=== PATIENT | female | born 1935 | race Asian ===

== ENCOUNTER 2024-05-13 05:08 | Inpatient (IN) | payer MEDICARE, OTHER, SELFPAY ==
[2024-05-13] VITALS (79 sets, daily range): BP systolic 78–125; BP diastolic 57–91; PULSE 2–102; BMI 21.9
[2024-05-13 01:14] LABS: Glucose - Point of Care 140 mg/dl (70-99)
--- NOTE | 2024-05-13 01:29 | ED.GENMED ---
History of Present Illness
General
Chief Complaint: Breathing Problem
Source: ambulance crew
Exam Limitations: none
Time Seen by Provider: 05/13/24 01:20
Nursing documentation reviewed up to this point in time: agreed with
History of Present Illness
History of Present Illness:
89-year-old female presents emergency department complaining of respiratory distress. Unclear onset. Patient was hypotensive per EMS, who gave 30 mcg of epinephrine. Blood pressure was 58/30.
Past History
Past History
ED Past Medical History: Arrthythmia, CVA (Left body paralysis, aphasia), HTN, NIDDM and Other (Dementia)
ED Past Surgical History: None
Patient has exhibited threatening behavior?: No
PSI?: No
Social History
Tobacco: Other
Alcohol: Other
Drug: None
Personal: Other
Living: [facility]
Employment: Not employed
Review of Systems
Review of Systems
Allergies reviewed?: Yes
Unable to obtain full review of systems at this time due to: dementia
All Other Systems: Not applicable
Respiratory: Reports cough and trouble breathing
Phy Exam
Physical Exam
Physical Exam:
Physical Exam
General: Moderate respiratory distress, on BiPAP, fever 102.6
Neck: supple. no meningeal signs. normal posterior pharynx
Heart: s1/s2 tachycardia, no murmur. equal radial
pulses.
HEENT: Pupils equal round reactive to light, EOMI
Lungs: Moderate respiratory distress. Rhonchi bilaterally
Abdomen: normal bowel sounds. not tender. no CVAT
Neuro: alert and oriented. no focal neurological deficits cranial nerves II through XII intact
Skin: no rash
Psychiatric: on bipap
Extremities: no edema. no calf tenderness. negative homans. good distal pulses
Scores
Heart Failure Risk
Heart Failure Risk Score: Yes
History of Stroke or TIA: Yes
History of intubation for respiratory distress: Yes
Heart rate on ED arrival >/= 110: Yes
SaO2 <90% on arrival on room air: Yes
HR >/=110 during 3min walk test (or too ill to perform test): Yes
ECG has acute ischemic changes: No
Urea >/=12mmol/L (BUN 33.6mg/dL): No
Serum CO2>/=35mmol/L: No
Troponin I or T elevated to OR Level (0.4mg/dL): No
NT-proBNP >/=5,000ng/L (5,000pg/ml): Yes
HF Risk Score: 7
Admission Status: VERY HIGH RISK 69.8% Consider admission to hospital
Sepsis
Sepsis Screening
Sepsis Assessment: Severe Sepsis
Sepsis Screening: Lactate >2mmol/L and Need for mechanical ventilation or BiPAP
Sepsis Screen
Sepsis Screen: Severe Sepsis
Date: 05/13/24
Time: 03:12
Course
Orders/Labs/Results
Orders:
Orders
05/13/24 01:11
EKG [Electrocardiogram (*1)] Urgent
Reason for Study: Shortness of Breath
EKG- Treatment ONCE
05/13/24 01:29
IV Insert/Care/Rem.- Treatment PRN
05/13/24 01:30
Acetaminophen [Tylenol/Feverall] 650 mg .ROUTE .STK-MED ONE
CR Chest Portable - 1 View Urgent
Comment:
Reason For Exam: short of breath
Reason Study Needs to be Portable: Patient Unstable
05/13/24 01:31
Acetaminophen [Tylenol/Feverall] 650 mg RECTAL NOW STA
05/13/24 01:35
0.9% Sodium Chloride 1000 ml [Nss] 1,000 ml IV BOLUS
05/13/24 01:49
Complete Blood Count/With Diff Urgent
Comprehensive Metabolic Panel Urgent
Lactic Acid Q4H
Comment: CANCEL 2nd LACTIC ACID IF 1st LACTIC ACID IS LESS THAN 2
NT-proBNP Urgent
Troponin I Urgent
05/13/24 01:51
Blood Culture Q30M
ALY Source: Blood/Venous
Specimen Description:
Blood Culture Q30M
ALY Source: Blood/Venous
Specimen Description:
05/13/24 02:02
COVID-19 Antigen Urgent
Source: Nasal Swab
Influenza A+B Rapid Molecular Urgent
ALY Source: Nasal Swab
Specimen Description:
05/13/24 02:34
Cefepime HCl [Maxipime] 2,000 mg IV NOW STA
Vancomycin 1 Gram/200 ml [Vancocin] 1 gram in 200 ml IV NOW
05/13/24 05:30
Lactic Acid Q4H
Comment: CANCEL 2nd LACTIC ACID IF 1st LACTIC ACID IS LESS THAN 2
Abnormal Lab Results
05/13/24 05/13/24
01:13 01:49
WBC 22.7 H 10^3/uL
(4.8-10.8)
RBC 4.09 L 10^6/uL
(4.20-5.40)
MCHC 32.2 L g/dL
(33.0-37.0)
RDW 16.1 H %
(11.5-14.5)
Sodium 148 H mmol/L
(135-145)
Chloride 113 H mmol/L
(98-107)
BUN 29 H mg/dl
(7-17)
Glucose 171 H mg/dl
(70-99)
Lactic Acid 2.5 H mmol/L
(0.7-2.0)
Total Bilirubin 1.8 H mg/dl
(0.2-1.3)
Alkaline Phosphatase 129 H U/L
(38-126)
Troponin I 0.035 H* ng/ml
Albumin 3.0 L g/dl
(3.5-5.0)
POC Glucose 140 H mg/dl
(70-99)
05/13/24 01:49
05/13/24 01:49
Vital Signs
Initial and Last Documented VS:
Initial Vital Signs
Temp Pulse Resp BP Pulse Ox
102.6 F H 129 30 88/66 97
05/13/24 01:11 05/13/24 01:11 05/13/24 01:11 05/13/24 01:11 05/13/24 01:11
Last Documented Vital Signs
Temp Pulse Resp BP Pulse Ox
102.6 F H 104 25 116/79 97
05/13/24 01:11 05/13/24 02:45 05/13/24 02:45 05/13/24 02:45 05/13/24 01:11
MDM/Problems Addressed
Differential Diagnosis Includes:
Pneumonia, influenza, CHF
MDM/Problems Addressed:
89-year-old female with influenza and pneumonia. Cefepime and vancomycin given. Patient cannot tolerate Tamiflu. BiPAP. Admit to ICU.
Chronic conditions affecting care: Asthma and Neurological disorder (Dementia)
Acute Exacerbation and/or Progression of Chronic Illness: Asthma
*Radiology
Radiology exam reviewed: preliminary read by ED provider (Chest x-ray right-sided pneumonia)
*Pulse Oximetry
Patient hypoxic: yes
*EKG
Interpreted by ED Provider?: Yes
EKG Intrepretation Date: 05/13/24
EKG Intrepretation Time: 01:20
Interpretation: abnormal
Comparison EKG: changes noted
Heart Rate: 124
Rate: tachycardiac
Rhythm: a-fib
[place]: left axis deviation
Interval: normal interval
QRS Pattern: normal QRS
Ischemia: no ischemia
*Cs Associate Interpretation
Rate: tachycardiac
Interpretation: abnormal
Heart Rate: 120
Rhythm: a-fib
*Critical Care Note
Total Time (30-74mins, 75-104mins- exclusive of procedures): 30
comment:
Critical care statement: A total of 30 minutes of critical care time was provided for this patient. This includes management of unstable vital signs, evaluation of the patient at bedside, reviewing the patient's pertinent medical records, discussion
with consultants, review of old EKGs and review of pertinent medical records. This time with separate from time utilized to perform the aforementioned documented procedures
Data Reviewed
Source: records (intermediate records show patient is full code)
Further Testing Considered But Not Given:
CT chest not indicated
Patient Management
Social determinants of health affecting care: Living situation and Strong social support
Discussion with other providers: Hospitalist
Escalation/DeEscalation of care consider admission/obs:
Admit indicated
ED Attending Note
-
Portions of this chart may have been created with voice recognition software.� Occasional wrong word or��sound alike� substitutions may have occurred due to the inherent limitations of voice recognition software.
Discharge Plan
Departure
Patient Disposition: Admit
Date of Disposition: 05/13/24
Time of Disposition: 03:02
Admit to: ICU
Presentation/result/management discussed w/ accepting MD/DO: Hospitalist
Patient with high blood pressure during this ER visit?: No
Condition: Fair
Discharge Problem:
Acute respiratory failure with hypoxia, Sepsis, Lactic acidosis, Influenza A, Bacterial pneumonia
Prescriptions:
No Action
atorvastatin 80 mg Tablet
80 mg feeding tube HS
donepezil 5 mg Tablet
5 mg feeding tube HS
bisacodyl [Dulcolax (bisacodyl)] 10 mg Suppository
10 mg NH DAILY PRN (Reason: if mom ineffective)
ferrous sulfate 300 mg (60 mg iron)/5 mL Liquid
300 mg feeding tube BID@0800,1600
insulin lispro 100 unit/mL Solution
1 sliding scale dose SC DAILY
Rx Instructions:
200-249=1unit, 250-299=2units,300-349=3units,350-399=4units,400-499=5units,if over 500 or under 60call MD
ipratropium-albuterol 0.5 mg-3 mg(2.5 mg base)/3 mL Solution For Nebulization
3 ml INHALATION R Q6HPRN PRN (Reason: wheezing SOB)
melatonin 3 mg Tablet
3 mg feeding tube HS PRN (Reason: insomnia)
tamsulosin 0.4 mg Capsule
0.4 mg PO DAILY@1730
metoprolol tartrate 25 mg Tablet
12.5 mg feeding tube BID
Patient Comments:
hold for sbp<100,hr<60
zinc oxide 30.6 % Cream
1 applic TOPICAL TID
acetaminophen 325 mg Tablet
650 mg feeding tube Q6H PRN (Reason: mild pain, T>100F )
lidocaine 4 % Adhesive Patch,Medicated
1 patch TOPICAL DAILY
polyethylene glycol 3350 [Miralax] 17 gram Powder In Packet
17 g feeding tube DAILY PRN (Reason: constipation)
therapeutic multivitamin Tablet
1 tab FEEDING TUBE DAILY
guaifenesin 100 mg/5 mL Liquid
100 mg feeding tube Q6H PRN (Reason: cough)
magnesium hydroxide [Milk of Magnesia] 400 mg/5 mL Suspension
30 ml feeding tube DAILY PRN (Reason: if no bm x 3 days)
Fleet Enema 19-7 gram/118 mL Enema
118 ml NH ONCE PRN (Reason: if dulcolax ineffective)
pantoprazole [address] For Susp In Packet
40 mg feeding tube DAILY
Aquaphor Ointment
1 applic TOPICAL BID
diphenhydramine HCl [Benadryl Allergy] 25 mg Tablet
25 mg PO DAILY@1600
nystatin 100,000 unit/gram Powder
1 applic TOPICAL BID
formoterol fumarate 20 mcg/2 mL Solution For Nebulization
2 ml INHALATION R BID
Eliquis 2.5 mg Tablet
2.5 mg feeding tube BID
doxycycline monohydrate 25 mg/5 mL Suspension For Reconstitution
100 mg feeding tube Q12H Qty: 0 0RF
albuterol sulfate 2.5 mg /3 mL (0.083 %) Solution For Nebulization
2.5 mg inhalation R QID Qty: 0 0RF
albuterol sulfate 2.5 mg /3 mL (0.083 %) Solution For Nebulization
2.5 mg inhalation R Q4HPRN PRN (Reason: SOB/cough) Qty: 0 0RF
prednisone 50 mg Tablet
50 mg feeding tube DAILY Qty: 0 0RF
budesonide 0.5 mg/2 mL Suspension For Nebulization
0.5 mg inhalation R BID Qty: 0 0RF
Referrals:
Garrick Sanchez DO [Family Provider] -
Interventions
Interventions:
*Risk Screen - Suicide Last Done: 05/13/24 01:11
*General Assessment Last Done: 05/13/24 01:11
*Neglect/Abuse Screening Last Done: 05/13/24 01:11
*ED COVID-19 Vaccine History Last Done: 05/13/24 01:11
Discharge Date and Time
Print Language: CUBAN
[2024-05-13] MEDS: TYLENOL/FEVERALL 650 MG RECTAL (01:31)
[2024-05-13] MEDS: NSS 1000 IV (01:41)
[2024-05-13 02:28] LABS: Hematocrit 38.8 % (37.0-47.0); Hemoglobin 12.5 g/dL (12.0-16.0); Mean Corp Hgb Conc. 32.2 g/dL (33.0-37.0); Mean Corpuscular Hgb 30.6 pg (27.0-31.0); Mean Corpuscular Volume 94.9 fL (81.0-99.0); Mean Platelet Volume 10.4 fL (7.4-10.4); Platelet Count 257 10^3/uL (130-400); Red Blood Cell Count 4.09 10^6/uL (4.20-5.40); Red Cell Dist. Width 16.1 % (11.5-14.5); White Blood Cell Count 22.7 10^3/uL (4.8-10.8)
[2024-05-13 02:37] LABS: COVID-19 Antigen Negative (Negative)
[2024-05-13 02:42] LABS: Lactic Acid 2.5 mmol/L (0.7-2.0)
[2024-05-13 02:52] LABS: ALT (SGPT) 25 U/L (0-35); AST (SGOT) 27 U/L (14-36); Alkaline Phosphatase 129 U/L (38-126); Blood Urea Nitrogen 29 mg/dl (7-17); Calcium 8.6 mg/dl (8.4-10.2); Carbon Dioxide 25 mmol/L (22-30); Chloride 113 mmol/L (98-107); Estimated Creatinine Clearance 27 ml/min; Glucose 171 mg/dl (70-99); Potassium 4.1 mmol/L (3.5-5.1); Sodium 148 mmol/L (135-145); Total Bilirubin 1.8 mg/dl (0.2-1.3); Total Protein 6.4 g/dl (6.3-8.2); eGFR > 60.00
[2024-05-13 02:54] LABS: NT-proBNP 9240 pg/ml; Troponin I 0.035 ng/ml
[2024-05-13] MEDS: MAXIPIME 2000 MG IV (03:04)
[2024-05-13] MEDS: VANCOCIN 200 IV (03:05)
[2024-05-13 04:19] LABS: Absolute Neutrophils -Man Diff 21.7 10^3/uL (1.4-6.5); Band Neutrophils 17 % (0-3); Lymphocytes 2 % (20-51); Monocytes 2 % (2-9); Normal RBC Morphology Yes; Platelets Checked Yes; Segmented Neutrophils 79 % (42-75)
[2024-05-13 04:20] LABS: Total Cells Counted 100; Vacuolated Segs 1+
--- NOTE | 2024-05-13 04:21 | HPS.HSE ---
Family Physician
-
Family Physician: Garrick Sanchez DO
Chief Complaint
-
Hypoxic respiratory failure
History of Present Illness
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
[facility] with hypoxic respiratory failure via EMS.
Patient unable to provide history due to language and extreme medical illness. History obtained from daughter. Daughter stated that patient started having symptoms about a week ago. At that time she tested negative for COVID and flu. She was
thought to have some cough and given cough medications. A few days later she was thought to have a mild asthma exacerbation and started on prednisone. She appeared to improve after couple of days however about 2 days ago she got very very
lethargic. Then this morning patient became hypoxic. She also became hypotensive. When EMS arrived they found her hypotensive to 50/30 with a respiratory rate of 40 and a pulse of 110. Oxygen saturation at that time was 90. They gave her a dose
of epinephrine and blood pressure improved to 106/68. With nonrebreather she was satting 100%.
On arrival in the emergency department patient placed on BiPAP, blood pressure remained at 116/79, she is satting at 98% on 15 L. ECG shows atrial fibrillation at rate of 124. Troponin was 0.035. Chest x-ray shows right midlung opacity. She had
a white count of 22,000, hemoglobin and platelets were normal. Electrolytes BUN/creatinine were in the normal range. COVID test was negative. Influenza test was positive.
Medical History
Past Medical History
Past Medical History: Reports Arrhythmia (Paroxysmal atrial fibrillation by history on Eliquis), CVA, Dementia, HTN and NIDDM
Past Surgical History: Reports None
Social History
Unable to obtain full social history at this time due to: Dementia
Tobacco: Other
Alcohol: Other
Drug: None
Living: [facility]
Employment: Disabled
Family History
Family History: Not pertinent
Allergies / Home Medications
Allergies reflects when Allergies were last updated in [facility].
Home Medications with original date entered in [facility]
Allergy/Medication List:
Allergies
Allergy/AdvReac Type Severity Reaction Status Date / Time
Penicillins Allergy Unknown Verified 05/13/24 03:01
Home Medications
acetaminophen 325 mg tablet 650 mg PO Q6H PRN mild pain, T>100F 10/25/21
atorvastatin 80 mg tablet 80 mg PO HS High cholesterol 10/25/21
bisacodyl 10 mg rectal suppository (Dulcolax (bisacodyl)) 10 mg ME DAILY PRN if mom ineffective 10/25/21
donepezil 5 mg tablet 5 mg PO HS Neurological Condition 10/25/21
guaifenesin 100 mg/5 mL oral liquid 100 mg PO Q6H PRN cough 10/25/21
ipratropium 0.5 mg-albuterol 3 mg (2.5 mg base)/3 mL nebulization soln 3 ml inhalation R Q6HPRN PRN wheezing SOB 10/25/21
magnesium hydroxide 400 mg/5 mL oral suspension (Milk of Magnesia) 30 ml PO DAILY PRN if no bm x 3 days 10/25/21
melatonin 3 mg tablet 3 mg PO HS PRN insomnia 10/25/21
polyethylene glycol 3350 17 gram oral powder packet (Miralax) 17 g PO DAILY PRN constipation 10/25/21
sodium phosphates 19 gram-7 gram/118 mL enema (Fleet Enema) 118 ml ME ONCE PRN if dulcolax ineffective 10/25/21
tamsulosin 0.4 mg capsule 0.4 mg PO DAILY@1730 Urinary issue 10/25/21
therapeutic multivitamin 1 tab feeding tube DAILY Supplement 10/25/21
zinc oxide 30.6 % topical cream 1 applic topical TID sacrum and buttock 10/25/21
apixaban 2.5 mg tablet (Eliquis) 2.5 mg PO BID Blood clot prevention/tx 02/07/22
formoterol fumarate 20 mcg/2 mL solution for nebulization 2 ml inhalation R BID Lung/breathing issues 02/07/22
albuterol sulfate 2.5 mg/3 mL (0.083 %) solution for nebulization 2.5 mg (3 mL) inhalation R Q4HPRN PRN SOB/cough #0 mL 02/16/22
albuterol sulfate 2.5 mg/3 mL (0.083 %) solution for nebulization 2.5 mg (3 mL) inhalation R QID #0 mL 02/16/22
budesonide 0.5 mg/2 mL suspension for nebulization 0.5 mg (2 mL) inhalation R BID #0 mL 02/16/22
ferrous sulfate 325 mg (65 mg iron) tablet 325 mg PO DAILY 05/13/24
mirtazapine 15 mg tablet (Remeron) 15 mg PO HS 05/13/24
oxymetazoline 0.05 % nasal spray (Afrin (oxymetazoline)) 2 spray intranasal Q12H PRN dryness/epitaxis 05/13/24
prednisone 10 mg tablet 10 mg PO DAILY 05/13/24
prednisone 10 mg tablet 20 mg PO DAILY 05/13/24
Review of Systems
-
Unable to obtain full review of systems at this time due to: Acuity
Physical Exam
Vital Signs
Vital Signs
Temp Pulse Resp BP Pulse Ox
102.6 F H 104 25 116/79 97
05/13/24 01:11 05/13/24 02:45 05/13/24 02:45 05/13/24 02:45 05/13/24 01:11
Physical Exam
General: Respiratory Distress and Appears in Distress
HEENT: NormoCephalic, Anicteric, Moist mucous membranes, Atraumatic and Oxygen
Respiratory: Wheezes, Rales, Rhonchi, Accessory Resp Muscle Use and Decreased Breath Sounds
Cardiac: S1/S2, Irregular Rhythm and Tachycardia
Breast: Deferred by me
GI: Soft, Non Tender, Non Distended and Normal Bowel Sounds
Rectal: Deferred by Provider
Genito-urinary: Deferred by me
Musculoskeletal: No Clubbing, No Cyanosis and No Edema
Skin: Warm
Neuro: AO x 3, No Motor Deficits and Nonfocal/grossly intact
Hematologic/Lymphatic: No Lymphadenopathy
Psych: Calm
Laboratory Results
-
05/13/24 01:49
05/13/24 01:49
Laboratory Results
Lactic Acid 2.5 mmol/L (0.7-2.0) H 05/13/24:49
Total Bilirubin 1.8 mg/dl (0.2-1.3) H 05/13/24:49
AST 27 U/L (14-36) 05/13/24:49
ALT 25 U/L (0-35) 05/13/24 01:49
Alkaline Phosphatase 129 U/L (38-126) H 05/13/24:49
Troponin I 0.035 ng/ml H* 05/13/24 01:49
Data Reviewed
-
Diagnostic Radiology: Image Personally Visualized and interpreted
Medical Tests (Nuc Med, Echo, EKG etc): Image Personally Visualized and interpreted
Lab Data: Labs Reviewed by me
Old Records: Reviewed
Impression/Plan
-
IMPRESSION:
89-year-old with history of CVA, dysphagia, left-sided hemiparesis, asthma, prior admission for pneumonia requiring intubation who presents to the emergency department in respiratory failure and sepsis. Onset of respiratory distress is
approximately 2 days ago in the setting of about 1 week of URI symptoms. Found to have influenza. She does have opacity on x-ray and leukocytosis. Troponin 0.035, BNP 9200. With degree of work of breathing that she does appear to have some
elevated neck veins. She does not have any peripheral edema on exam. No known history of CHF
PLAN:
Pneumonia/influenza -pneumonia with sepsis, likely postviral with respiratory failure. She is in extreme distress requiring BiPAP. She still breathing at a rate of 30 on the BiPAP.
- admit to icu
-Currently maintaining oxygen saturation of 100% on the BiPAP
-Blood culture sent
-Continue vancomycin (history of MRSA) continue cefepime
� Add doxycycline
-Cannot give Tamiflu at this time but will order until patient has some kind of enteral access
-She may be in asthma exacerbation will give IV Solu-Medrol 125mg, albuterol now and 1 dose of mag sulfate
-[employer] consult
-She does have elevated BNP and elevated neck veins, no prior history of CHF and no peripheral edema. She was hypotensive with initial arrival. Will hold off on Lasix for now and get echo in the morning. Status post 1 L of normal saline no
further IV fluids at this time.
- pressors if needed.
Had a long discussion with daughter, patient remains full code.
A-fib, he is in rapid A-fib rates of 100s to 120s. This is likely secondary to infection and hypoxia
-On apixaban, continue for now as tolerated p.o., if patient unable to take p.o. over the proliferative time can convert to heparin
-Will not force rate control unless BP is stable and patient has persistently elevated heart rate
-Will continue her statin as tolerated orally
CVA/dementia
-Statin�Eliquis as tolerated orally
-Donepezil as tolerated or orally
CHF - BNP 9000, elevated neck veins. PNA on xray. Initially hypotensive. Possibly right sided failure but no peripheral edema.
- given 1 L NS in ED to maintain pressures, will hold off on diuretics for now
- echo in am
- no maintenance fluid for now unless hypotensive.
DVT PPX SCD for now pending oral apixaban or parenteral heparin
Code status - Full Code
[2024-05-13] MEDS: MAGNESIUM SULFATE 50 IV (04:47)
[2024-05-13] MEDS: SOLU-MEDROL PF 125 MG IV (04:47)
[2024-05-13] MEDS: VENTOLIN NEBULES 2.5 MG INH (04:55)
[2024-05-13 06:15] LABS: Glucose - Point of Care 152 mg/dl (70-99)
[2024-05-13] MEDS: XOPENEX 1.25 MG INHALANT SOLUTION INH (06:21)
--- NOTE | 2024-05-13 06:25 | PTCARENOTE ---
pt adm to ICU from ER, lethargic, hx dementia, no verbal response at this time. 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 febrile- Rectal probe inserted - 101.7F. AFib HR low 100s-120s. B/L IV WNL. Bipap 10L- upon
transfer into ICU bed, pt RR 40s. BDoughertyNP aware and to bedside- breathing tx and abg ordered. pt gradually recovered to RR 20s. purewick applied. CHG cloths done. care ongoing.
[2024-05-13 06:52] LABS: Hematocrit 36.7 % (37.0-47.0); Hemoglobin 11.9 g/dL (12.0-16.0); Mean Corp Hgb Conc. 32.4 g/dL (33.0-37.0); Mean Corpuscular Hgb 30.4 pg (27.0-31.0); Mean Corpuscular Volume 93.9 fL (81.0-99.0); Mean Platelet Volume 10.4 fL (7.4-10.4); Platelet Count 225 10^3/uL (130-400); Red Blood Cell Count 3.91 10^6/uL (4.20-5.40); Red Cell Dist. Width 16.3 % (11.5-14.5); White Blood Cell Count 21.8 10^3/uL (4.8-10.8)
[2024-05-13 07:00] LABS: PT 17.4 Sec (11.4-14.6)
[2024-05-13 07:01] LABS: APTT 38.6 Sec (23.4-35.0)
[2024-05-13 07:03] LABS: B.E. -1.1 mmol/L; HCO3 23.5 mmol/L (21-28); O2 Saturation % 99.5 % (94-98); PCO2 38 mmHg (32-35); PO2 150 mmHg (83-108)
[2024-05-13 07:04] LABS: O2 Therapy 60
[2024-05-13 07:06] LABS: Lactic Acid 1.6 mmol/L (0.7-2.0)
[2024-05-13 07:18] LABS: Blood Urea Nitrogen 31 mg/dl (7-17); Calcium 8.1 mg/dl (8.4-10.2); Carbon Dioxide 23 mmol/L (22-30); Chloride 115 mmol/L (98-107); Estimated Creatinine Clearance 31 ml/min; Glucose 163 mg/dl (70-99); Sodium 145 mmol/L (135-145); eGFR > 60.00
[2024-05-13] MEDS: DUONEB 3 ML INH ×4 (07:24→19:20)
[2024-05-13] MEDS: VIBRAMYCIN 260 MG IV (08:30)
[2024-05-13] MEDS: OFIRMEV 100 IV (08:30)
[2024-05-13] MEDS: ELIQUIS PO ×2 (08:31→19:28)
--- NOTE | 2024-05-13 09:12 | PHA.VAN.IN ---
Assessment
- Assessment
Renal Function: Appears similar to baseline
Concomitant Antimicrobials: cefepime, doxycycline, oseltamivir
- Previous Dosing Experience
Previous Regimen: Vanc 1250mg Q24H
Date of Regimen: February 2022
Provided Trough of: 16
Provided AUC of: 572
Patient's SCR is: Similar to previous dosing experience
Patient's weight is: Decreased compared to previous dosing experience (47.5kg vs ~63 kg in 2021)
Regimen provided the following additional patient-specific PK:
ke=0.0355
half-life = 19.5H
Vd = 61.5 L (~1 L/kg)
Vanc Cl ~36 ml/min
Plan
- Plan
Initial / Loading Dose: 1000mg - 05/13 03:05
Maintenance Regimen: dosing by level - give additional 500mg x1 today
Monitoring: random 05/14 06
MRSA Screen: Ordered per protocol
Vanc 1000mg Q24H predicts AUC 465 and trough 12.5 based on prior dosing experience but with current weight and estimated CrCl, it predicts AUC 1013 and 29.2
Will dose by level for now to trend how patient clears
Pharmacokinetics Vancomycin I
- -
Patient Age: 89
Patient Sex: Female
Vancomycin Day #: 1
Indication: Pulmonary/Respiratory
Requesting Provider: Dr. Vaca
Pertinent Antimicrobial Allergies:
penicillins - unknown
Height / Weight:
Height 4 ft 10 in
Actual Weight 47.5 kg
Pertinent Past Medical History: influenza
- Vital Signs / Lab Results
Temp Pulse Resp BP Pulse Ox
101.1 F H 102 26 102/72 97
05/13/24 08:00 05/13/24 09:00 05/13/24 09:00 05/13/24 09:00 05/13/24 09:00
Lab Results - Hematology
05/13/24 05/13/24
01:49 06:44
WBC 22.7 H 21.8 H
Band Neutrophils 17 H
Lab Results - Chemistry
05/13/24 05/13/24
01:49 06:44
BUN 29 H 31 H
Creatinine 0.9 0.8
Estimated Creat Clear 27 31
Albumin 3.0 L
05/13/24 05/13/24 05/13/24
01:49 01:51 06:44
Lactic Acid 2.5 H Cancelled 1.6
Microbiology Results
05/13/24 02:02 Influenza Types A & B (HERBIE) - Final
Nasal Swab Influenza A Positive, NAAT
--- NOTE | 2024-05-13 09:23 | CON.ID ---
Addendum entered and electronically signed by Bobbi Almendarez MD 05/13/24 11:08:
Correction:
Date/Time Consultation Requested: May 13, 2024601
Date/Time Consultation Performed: May 13, 2024919
Original Note:
Consultation
-
Date/Time Consultation Requested: April 15, [id number]
Date/Time Consultation Performed: April 15, 2024919
Requesting Provider: Dr.Adedotun Vaca
Performing Provider: Dr. Bobbi Almendarez
Reason for Consultation: Influenza with pneumonia, respiratory failure
Chief Complaint / Past History
Chief Complaint
Lethargy, hypoxia
History of Present Illness
History obtained from patient's daughter at bedside since patient has dementia and currently very ill unable to provide any history. She is an 89-year-old female from retirement facility with history of CVA, dysphagia, dementia, diabetes
mellitus, asthma who presented to [facility] early this morning due to acute onset of lethargy and hypoxia. Approximately 2 weeks ago patient started coughing and wheezing. Chest x-ray negative. COVID and influenza negative. She was
placed on prednisone x 5 days for asthma exacerbation. Per daughter the wheezing waxed and waned while on prednisone. No headaches. No fever at the [facility]. No chills. No rhinorrhea. Yesterday patient was very weak and unable to perform
her routines. Last night daughter got a call that patient was sent to the ER due to respiratory distress and hypoxia. She arrived in the ER on a BiPAP. She was febrile to 102. Blood pressure in the 50s systolic. White count 21.8 with 17% bands.
COVID-negative. Influenza A+. Chest x-ray shows right middle lobe and lower lobe opacities. She was started on IV vancomycin, cefepime, doxycycline. Oseltamivir ordered but patient too lethargic to take p.o. She is currently on BiPAP without
plans for putting enteric access for now. Daughter reports patient did have her flu vaccine in the fall. No ill contacts. No flu outbreak at the [facility]. Per daughter, she feeds her mother pur�ed food lunch every day, no signs of aspiration.
Past History
Additional Past Medical History:
Diabetes mellitus
Dementia
CVA with left-sided weakness and dysphagia
Asthma
Atrial fibrillation on Eliquis
Hypertension
GERD
Bilateral total knee replacements
SNF resident
Allergy History:
Penicillins Allergy (Verified 05/13/24 03:01)
Unknown
Medications Reviewed: Yes
Current Antibiotics:
Oseltamivir 30mg qd, not given
Vancomycin
cefepime
doxycycline d1
Social History
Tobacco: Non-Smoker
Alcohol: None
Drug: None
Living: Alf
Family History
Family History: Not Pertinent
Review of Systems
Review of Systems
Unable to obtain due to decreased mental status and dementia.
Vital Signs
Temp Pulse Resp BP Pulse Ox
101.1 F H 102 26 102/72 97
05/13/24 08:00 05/13/24 09:00 05/13/24 09:00 05/13/24 09:00 05/13/24 09:00
Selected Entries
05/13/24
01:11 05/13/24
08:00
Temp 102.6 F H 101.1 F H
Physical Exam
Physical Exam
Constitutional: Acutely Ill
Head: Other (No frontal or max or sinus tenderness)
Eyes: No Conjunctival Hemorrhage and Sclera Anicteric
Cardiovascular: Irregular Rate and Other (Tachycardic)
Pulmonary: Rales (Crackles right base) and Other (On BiPAP)
Gastrointestinal: Soft, Non Tender, Non Distended and Normal Bowel Sounds
Genito-Urinary: Negative CVA Tenderness
Extremities: Negative Edema
Musculoskeletal: Negative Joint Swelling (Bilateral knees) or Joint Effusion (Bilateral knees)
Neurological: Other (Minimally responsive); Negative Meningeal Signs (With passive movement)
Lab / Diagnostic Study Results
05/13/24 06:44
05/13/24 06:44
Total Counted 100 05/13/24 01:49
Abs Neuts (Manual) 21.7 10^3/uL (1.4-6.5) H 05/13/24 01:49
Segmented Neutrophils 79 % (42-75) H 05/13/24 01:49
Band Neutrophils 17 % (0-3) H 05/13/24 01:49
Lymphocytes (Manual) 2 % (20-51) L 05/13/24 01:49
PT 17.4 Sec (11.4-14.6) H 05/13/24 06:44
INR 1.40 05/13/24 06:44
Lactic Acid 1.6 mmol/L (0.7-2.0) 05/13/24 06:44
Microbiology Results
Micro:
05/13/24 01:51 Blood Culture - Pending
Blood/Venous
05/13/24 02:02 Influenza Types A & B (HERBIE) - Final
Nasal Swab Influenza A Positive, NAAT
05/13/24 01:51 Blood Culture - Pending
Blood/Venous
05/13/24 CXR: There is new airspace disease involving the right upper and lower lobes consistent with pneumonia
05/13/[address]: No acute intracranial abnormalities appreciated. Old infarct suspected within the right temporoparietal lobe. Partial obscuration of the left mastoid air cells. Please correlate for symptoms of mastoiditis.
Assessment / Plan
# Severe influenza A infection
# Superimposed right sided PNA (risk for MRSA, CUBA, Strep pneumo, Group A strep co-infection with influenza). Aspiration pneumonia also in differential.
# Acute hypoxemic respiratory failure - on BiPAP
# Septic shock on pressors
# Fever, leukocytosis, bandemia
# Decreased mental status
# hx MRSA colonization
- Oseltamivir is indicated for this critically ill patient.
Unfortunately, she cannot safely take po meds due to lethargy.
Currently on BiPap - prohibitive for NGT or dobhoff tube due quick desaturation
Monitor closely, when able, start oseltamivir NAIF.
- Continue Vancomycin and cefepime for now.
- Follow blood cx's
- If intubation, obtain sputum cx.
- Aspiration precaution
- Trend temps/wbc/vitals, clinical condition.
# Conditions prior to admision
Diabetes mellitus
Dementia
CVA with left-sided weakness and dysphagia
Asthma
Atrial fibrillation on Eliquis
Hypertension
GERD
Bilateral total knee replacements
SNF resident
Care Review
Plan reviewed with: Other (pharmacists Latasha Gandara)
Total Time Spent with Patient (in minutes): 60 min critical care time
60 min critical care time spent on case, including review of medical records, interview with family member, discussions with pharmacists and literature search to find alternative ways to safely and effectively treat the severe influenza due to
complexity of case.
[2024-05-13] MEDS: LR 500 IV ×2 (09:56→16:47)
--- NOTE | 2024-05-13 11:25 | PTOTSP ---
Received order for PT from the ED and reviewed chart and old record. Pt is [facility] care resident of [facility] where she is dependent/[facility] lift at baseline. Pt has no acute PT needs or goals as she is at baseline. PT will sign off.
[2024-05-13] MEDS: MAXIPIME 1000 MG IV ×2 (11:31→23:00)
[2024-05-13] MEDS: STERILE WATER FOR INJECTION 10 ML IV (11:31)
[2024-05-13 12:13] LABS: Glucose - Point of Care 142 mg/dl (70-99)
[2024-05-13] MEDS: NOVOLOG FLEXPEN-LOW RESISTANCE SC ×2 (12:49→19:28)
[2024-05-13] MEDS: VANCOCIN HCL 500 MG 100 IV (12:49)
[2024-05-13 13:11] LABS: B.E. -1.2 mmol/L; HCO3 23.6 mmol/L (21-28); O2 Saturation % 98.2 % (94-98); PCO2 39 mmHg (32-35); PO2 85 mmHg (83-108); pH 7.39 (7.35-7.45)
--- NOTE | 2024-05-13 13:39 | W.PN.HOSP.TC ---
Today's Communication/Plan
-
Total Critical Care Time__55___ minutes. I was immediately available to the patient and staff. I personally examined, reviewed labs, diagnostic images/reports, interpretations, treatment plans, discussed patient care with other providers and
family or caregivers (if patient is unable to make decisions), entered orders as appropriate and documented the medical record.
Assessment / Plan
Assessment / Plan
Impression:
Acute hypoxic/hypercarbic respiratory failure
Severe influenza A infection
Right sided multifocal pneumonia suspected superimposed on influenza, also with reasonable aspiration risk in patient with CVA
Sepsis with septic shock requiring vasopressors
Toxic metabolic encephalopathy secondary to above.
Type II OH.
Elevated pro CHF BNP
MRSA colonization
Other conditions:
Status post CVA with left hemiparesis. Bedbound. shelter resident.
Chronic atrial fibrillation baseline anticoagulation with Eliquis
Hypertension
Dyslipidemia
History of PEG tube. Currently on modified diet with aspiration precautions
Plan:
Acute hypoxic respiratory failure. Some degree of relative hypercarbia in the settings of severe influenza A/bacterial pneumonia.
Currently on BiPAP
Follow-up ABG
Sepsis with septic shock and hypotension secondary to influenza A/bacterial pneumonia.
Blood cultures pending.
Unable to provide Tamiflu along with other oral medication given patient respiratory status and aspiration risk
Continue broad-spectrum antibiotics vancomycin/cefepime
Aspiration precautions
Currently off pressors
Responded to IV fluid bolus.
Initiated on pulse dose of systemic steroids Solu-Medrol 40 mg IV every 12
Chronic atrial fibrillation.
A-fib with RVR on presentation. Currently rate controlled
Not on any rate control medications prior to admission
Continue telemetry monitoring.
Resume Eliquis when able to take p.o.
Consider heparin bridging if prolonged period off oral anticoagulant
Type II OH. Flat troponins.
ECG with no ischemia
Echocardiogram 05/13: LVEF 65-70%. Normal regional wall motion. Normal RV size and function. Mild to moderate aortic stenosis PAOLO 1.4 cm�. Moderate TR. Pulmonary artery pressure 40 to 45 mmHg. Small to medium sized pericardial effusion without
evidence of hemodynamic compromise.
Monitor volume status closely.
Not on diuretics [employer]
History of CVA with left hemiparesis. Functional quadriplegia.
Bedbound/wheelchair-bound [facility] resident
Continue supportive care
Continue donepezil when able to take p.o.
Goals of care discussion with patient's daughter at the bedside.
Full code.
DVT prophylaxis mechanical/Eliquis
Anticipated Discharge: > 48 hours
Subjective/Interval History
-
Date of Service: May 13, 2024
Objective Data
-
Labs:
Laboratory Results
05/13/24 05/13/24 05/13/24
01:49 06:28 06:44
WBC 22.7 H 21.8 H
Hgb 12.5 11.9 L
Hct 38.8 36.7 L
Plt Count 257 225
PT 17.4 H
INR 1.40
APTT 38.6 H
HCO3 23.5
Sodium 148 H 145
Potassium 4.1 4.0
Chloride 113 H 115 H
Carbon Dioxide 25 23
BUN 29 H 31 H
Creatinine 0.9 0.8
Glucose 171 H 163 H
Calcium 8.6 8.1 L
Total Bilirubin 1.8 H
AST 27
ALT 25
Alkaline Phosphatase 129 H
05/13/24
13:01
WBC
Hgb
Hct
Plt Count
PT
INR
APTT
HCO3 23.6
Sodium
Potassium
Chloride
Carbon Dioxide
BUN
Creatinine
Glucose
Calcium
Total Bilirubin
AST
ALT
Alkaline Phosphatase
Vital Signs:
Vital Signs
Temp Pulse Resp BP Pulse Ox
97.3 F 103 98 84/59 98
05/13/24 12:00 05/13/24 11:09 05/13/24 11:09 05/13/24 10:30 05/13/24 11:09
Physical Exam
-
General: Well Developed and No Apparent Distress
HEENT: Normocephalic, Atraumatic and Moist Mucous Membranes
Respiratory: Clear to Auscultation
Cardiac: Regular Rhythm and S1/S2; Negative Murmur, Rub or Gallop
GI: Soft, Nontender, Nondistended and Normal Bowel Sounds; Negative Organomegaly
Rectal: Deferred by Provider
Musculoskeletal: No Clubbing, No Cyanosis and No Edema
Skin: Negative Rash
Neuro: Nonfocal/Grossly Intact
--- NOTE | 2024-05-13 13:39 | CON.INTV ---
Consultation
Consultation Request
Date/Time Consultation Requested: 05/13/2024
Date/Time Consultation Performed: 05/13/2024
Medical History
-
Chief Complaint: Lethargy, hypotension, hypoxia
History of Present Illness:
89-year-old [id number] female with past medical history of asthma, dementia, CVA with residual left-sided paralysis, dysphagia, hypertension, hyperlipidemia, A-fib on Eliquis, urinary retention presenting from group home to the ED via
EMS due to lethargy, hypotension and hypoxia. Per patient's daughter, patient had been coughing and wheezing for the past 2 weeks, COVID and flu negative at that time, chest x-ray was negative and she was placed on prednisone for asthma
exacerbation. About 2 days ago patient became lethargic and last night she was hypotensive. Per EMS, patient was hypotensive at 50/30, tachypneic with a respiratory rate of 40, tachycardic at 110 and hypoxic satting at 90%. Patient was given 30 mcg
epinephrine en route to the hospital and placed on a nonrebreather mask satting at 100%. No fever, chills, chest pain, diarrhea, headache reported at group home. Patient is wheelchair-bound at baseline and has a pur�ed diet. Daughter notes patient
does occasionally have difficulty with swallowing food and had her flu vaccine December last year. No sick contacts at group home.
In the ED, patient was febrile (102.6F), was placed on BiPAP, satting at 98% on 15 L oxygen, blood pressure was stable after receiving 1 L normal saline bolus. EKG showed A-fib with rate in the 120s, troponin elevated 0.035 (appears to be chronic).
White count elevated at 22.7 with 17% bands. Lactic acid 2.5. COVID-negative. Flu positive. Blood cultures were obtained. Chest x-ray showed right middle lobe and lower lobe opacities. Patient was given cefepime, doxycycline and vancomycin.
Was started on oseltamivir, however was not taken due to lethargy and no enteric access.
Past Medical History
Past Medical History: Arrhythmias, Asthma, CVA, GERD, HTN, Hypercholesterolemia, NIDDM and Other (Dementia, dysphagia, per daughter patient has been intubated in the past for respiratory distress)
Past Surgical History: Orthopedic (Bilateral total knee replacement)
Social History
Tobacco: Non-smoker
Alcohol: None
Living: Skilled Nursing
Allergies / Home Medications
Allergies
Allergy/AdvReac Type Severity Reaction Status Date / Time
Penicillins Allergy Unknown Verified 05/13/24 03:01
Home Medications
�Medication �Instructions �Recorded �Confirmed �Last Taken �Type
acetaminophen 325 mg tablet 650 mg PO Q6H PRN mild pain, T>100F 10/25/21 05/13/24 Unknown History
atorvastatin 80 mg tablet 80 mg PO HS High cholesterol 10/25/21 05/13/24 02/06/22 History
bisacodyl 10 mg rectal suppository 10 mg NE DAILY PRN if mom 10/25/21 05/13/24 Unknown History
(Dulcolax (bisacodyl)) ineffective
donepezil 5 mg tablet 5 mg PO HS Neurological Condition 10/25/21 05/13/24 02/06/22 History
guaifenesin 100 mg/5 mL oral liquid 100 mg PO Q6H PRN cough 10/25/21 05/13/24 02/07/22 History
ipratropium 0.5 mg-albuterol 3 mg 3 ml inhalation R Q6HPRN PRN 10/25/21 05/13/24 02/07/22 History
(2.5 mg base)/3 mL nebulization wheezing SOB
soln
magnesium hydroxide 400 mg/5 mL 30 ml PO DAILY PRN if no bm x 3 10/25/21 05/13/24 Unknown History
oral suspension (Milk of Magnesia) days
melatonin 3 mg tablet 3 mg PO HS PRN insomnia 10/25/21 05/13/24 02/06/22 History
polyethylene glycol 3350 17 gram 17 g PO DAILY PRN constipation 10/25/21 05/13/24 Unknown History
oral powder packet (Miralax)
sodium phosphates 19 gram-7 118 ml NE ONCE PRN if dulcolax 10/25/21 05/13/24 Unknown History
gram/118 mL enema (Fleet Enema) ineffective
tamsulosin 0.4 mg capsule 0.4 mg PO DAILY@1730 Urinary issue 10/25/21 05/13/24 02/06/22 History
therapeutic multivitamin 1 tab feeding tube DAILY Supplement 10/25/21 05/13/24 02/07/22 History
zinc oxide 30.6 % topical cream 1 applic topical TID sacrum and 10/25/21 05/13/24 02/07/22 History
buttock
apixaban 2.5 mg tablet (Eliquis) 2.5 mg PO BID Blood clot 02/07/22 05/13/24 02/07/22 History
prevention/tx
formoterol fumarate 20 mcg/2 mL 2 ml inhalation R BID 02/07/22 05/13/24 02/07/22 History
solution for nebulization Lung/breathing issues
albuterol sulfate 2.5 mg/3 mL 2.5 mg (3 mL) inhalation R Q4HPRN 02/16/22 05/13/24 Unknown Rx
(0.083 %) solution for nebulization PRN SOB/cough #0 mL
albuterol sulfate 2.5 mg/3 mL 2.5 mg (3 mL) inhalation R QID #0 02/16/22 05/13/24 Unknown Rx
(0.083 %) solution for nebulization mL
budesonide 0.5 mg/2 mL suspension 0.5 mg (2 mL) inhalation R BID #0 02/16/22 05/13/24 Unknown Rx
for nebulization mL
ferrous sulfate 325 mg (65 mg 325 mg PO DAILY 05/13/24 05/13/24 Unknown History
iron) tablet
mirtazapine 15 mg tablet (Remeron) 15 mg PO HS 05/13/24 05/13/24 Unknown History
oxymetazoline 0.05 % nasal spray 2 spray intranasal Q12H PRN 05/13/24 05/13/24 Unknown History
(Afrin (oxymetazoline)) dryness/epitaxis
prednisone 10 mg tablet 10 mg PO DAILY 05/13/24 05/13/24 Unknown History
prednisone 10 mg tablet 20 mg PO DAILY 05/13/24 05/13/24 Unknown History
Review of Systems
-
Unable to Obtain full review of systems at this time due to: Language Barrier
History Source: Family and Physician
Respiratory: Cough and Trouble Breathing
Cardiac: Chest Pain (n)
Abdomen/GI: Abdominal Pain (n) and Diarrhea (n)
Neuro: Weakness
Vitals / Labs / Diagnostic Testing
Vital Signs
Temp Pulse Resp BP Pulse Ox
97.3 F 103 98 84/59 98
05/13/24 12:00 05/13/24 11:09 05/13/24 11:09 05/13/24 10:30 05/13/24 11:09
Lab Data
05/13/24 06:44
05/13/24 06:44
Laboratory Results
05/13/24 05/13/24 05/13/24
06:28 06:44 13:01
PT 17.4 H
INR 1.40
APTT 38.6 H
pH 7.40 7.39
pCO2 38 H 39 H
pO2 150 H 85
HCO3 23.5 23.6
O2 Delivery Level 60
Microbiology
05/13/24 02:02 Nasal Swab Influenza Types A & B (HERBIE) - Final
Influenza A Positive, NAAT
Diagnostic Testing:
Physical Exam
-
HEENT: Normocephalic
Cardiovascular: S1/S2, Irregular Rhythm and Other (Tachycardic)
Respiratory: Wheeze (Diffuse bilateral) and Rhonchi (Right>left)
GI: Soft, Non Distended, Non Tender and Normal Bowel Sounds
Neurology: Awake, Other (Arousable to voice, follows commands) and Other (Left-sided weakness)
Skin: Warm
General: Respiratory Distress (n), Comfortable and Fever (n)
Assessment
-
89-year-old ybk-[id number]-[id number] female with past medical history of asthma, dementia, CVA with residual left-sided paralysis, dysphagia, hypertension, A-fib on Eliquis, GERD, urinary retention presenting from group home to the ED due to acute
hypoxic respiratory failure and lethargy.
#Acute hypoxic respiratory failure
- Patient is currently on BiPAP. Diffuse wheezing and right>left rhonchi on exam. She has a history of asthma. Tested flu positive in the ED.
- Initial AB.40/38/150/23.5 -- mildly elevated CO2 with normal pH
- Repeat ABG at 1 PM: 7.3 9/39/85/23.6
- Likely in the setting of severe influenza, superimposed pneumonia, and asthma exacerbation. Cannot exclude aspiration pneumonia
#Hypotension
- Likely septic shock
- Patient received 1 L normal saline bolus in the ED and 500 mL LR bolus in the ICU
- Blood pressures remain soft, MAP greater than 65
- Patient is not currently on any pressors
- Likely in the setting of severe influenza, and superimposed/aspiration pneumonia
- Lactic acid downtrending, 2.5 --> 1.6
#Altered mental status
- Head CT was ordered given patient was on Eliquis, which showed no acute intracranial abnormality, old infarct suspected within the right temporal parietal lobe, partial obscuration of the left mastoid air cells and small amount of fluid within the
sphenoid sinuses.
- Patient's mentation improved throughout the day, is currently awake, arousable to voice and follows commands.
- Likely in the setting of sepsis
#Elevated troponin, chronic
#Elevated proBNP
- Patient does not have a history of heart failure. Echo today showed EF 65 to 70%, severely dilated left and right atrium, mild to moderate MR, mild to moderate , moderate TR, estimated pulmonary artery pressure of 40 to 45 mmHg, small to medium
sized pericardial effusion without evidence of hemodynamic compromise -- likely viral pericardial effusion
#Atrial fibrillation, rate controlled
#Influenza A infection, severe
#Multifocal pneumonia, right lung
#Asthma exacerbation
#Leukocytosis
Conditions present prior to admission:
Dementia
CVA with left-sided weakness
Hypertension
Hyperlipidemia
Dysphagia
History of MRSA colonization
Plan:
RASS score -1. Patient is not complaining of any pain, appears to be more awake compared to this morning. Continue to monitor mental status.
Head CT negative for acute abnormalities. Can consider restarting donepezil once able to take oral meds.
Maintain MAP>65. Start pressors if needed.
Patient is currently in A-fib, rate controlled without any rate control medications. Goal rate<110. Can consider restarting Eliquis once able to take oral meds.
proBNP 9240. Echo today showed EF 65 to 70%, severely dilated left and right atrium, mild to moderate MR, mild to moderate , moderate TR, estimated pulmonary artery pressure of 40 to 45 mmHg, small to medium sized pericardial effusion without
evidence of hemodynamic compromise.
Currently on BiPAP (12/14), on 4 L oxygen, no acute respiratory distress. Try BiPAP break, resume at bedtime.
Continue DuoNebs as scheduled, taper steroids to Solu-Medrol 40 mg every 12 hours. Consider tapering if wheezing improves.
Patient remains n.p.o. Can consider advancing diet if patient becomes more tomorrow.
Creatinine at baseline. Continue to monitor Cr and critical I/Os. No indication for diuresis at this time.
Continue vancomycin and cefepime. Consider starting oseltamivir once patient is able to take oral meds.
Trend wbc and monitor for fevers. Aspiration precautions. Blood cultures pending. Obtain sputum culture if able.
Continue sliding scale insulin for possible steroid-induced hyperglycemia. Maintain euglycemia with BG goal 140-180, avoid hypoglycemia.
--- NOTE | 2024-05-13 14:00 | PTCARENOTE ---
Assessment unchanged besides noted below:
Patient more alert at this time. Opening eyes, waved with right hand. Interacting with daughter.
--- NOTE | 2024-05-13 14:50 | CM ---
CM is following re: discharge planning.
Discussed in Rounds, reviewed pt's chart, met with pt.
Pt is an 89 year old female, admitted with primary dx of Acute respiratory failure due to PNA /Influenza.
Per daughter pt was born and raised in [place], primary language is Cantonese. Pt has 5 supportive children. 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 Per
daughter, pt is a w/c bound at baseline, [facility] lift for transferring.
Per [facility] liaison, pt is a termite inspector care resident, on bed hold and pt will be accepted back when medically stable.
PCP: Garrick Sanchez
Pharmacy: [facility]
D/C plan: return back to [facility] when medically stable.
CM will follow with discharge plan updates as hospitalization progresses
--- NOTE | 2024-05-13 15:02 | CON.INTV ---
Consultation
Consultation Request
Date/Time Consultation Requested: 05/13/2024
Date/Time Consultation Performed: 05/13/2024 9 am
Performing Provider: Katherine Hooker
Reason for Consultation: Respiratory failure
Medical History
-
Chief Complaint: Respiratory distress.
History of Present Illness:
During my initial evaluation in the morning, patient was unresponsive and on BiPAP and unable to provide any meaningful information. History is mostly obtained from the family at bedside as well as review from chart.
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
to the emergency department from snf with hypoxic respiratory failure via EMS.
Daughter stated that patient started having symptoms about a week ago. At that time she tested negative for COVID and flu. She was thought to have some cough and given cough medications. A few days later she was thought to have a mild asthma
exacerbation and started on prednisone. She appeared to improve after couple of days however about 2 days ago she got very very lethargic. Then this morning patient became hypoxic. She also became hypotensive. When EMS arrived they found her
hypotensive to 50/30 with a respiratory rate of 40 and a pulse of 110. Oxygen saturation at that time was 90. They gave her a dose of epinephrine and blood pressure improved to 106/68. With nonrebreather she was saturating 100%.
On arrival in the emergency department patient placed on BiPAP, blood pressure remained at 116/79, she is satting at 98% on 15 L. ECG shows atrial fibrillation at rate of 124. Troponin was 0.035. Chest x-ray shows right midlung opacity. She had
a white count of 22,000, hemoglobin and platelets were normal. Electrolytes BUN/creatinine were in the normal range. COVID test was negative. Influenza testing was positive.
Patient was subsequently admitted to ICU. Delivery Route Driver consultation was requested for noninvasive positive pressure ventilation management.
Significant past medical history. Paroxysmal A-fib on Eliquis, history of CVA, dementia, hypertension and vdz-mwdixvh-nfoyntvek diabetes mellitus.
-Per daughter at bedside, patient has been intubated in the past due to respiratory failure.
Past Medical History
Past Surgical History: Other (As above)
Social History
Occupational Exposures: Unable to obtain social history as patient is unresponsive.
Family History
Family History: Reviewed & Not Pertinent
Allergies / Home Medications
Allergies
Allergy/AdvReac Type Severity Reaction Status Date / Time
Penicillins Allergy Unknown Verified 05/13/24 03:01
Home Medications
�Medication �Instructions �Recorded �Confirmed �Last Taken �Type
acetaminophen 325 mg tablet 650 mg PO Q6H PRN mild pain, T>100F 10/25/21 05/13/24 Unknown History
atorvastatin 80 mg tablet 80 mg PO HS High cholesterol 10/25/21 05/13/24 02/06/22 History
bisacodyl 10 mg rectal suppository 10 mg KY DAILY PRN if mom 10/25/21 05/13/24 Unknown History
(Dulcolax (bisacodyl)) ineffective
donepezil 5 mg tablet 5 mg PO HS Neurological Condition 10/25/21 05/13/24 02/06/22 History
guaifenesin 100 mg/5 mL oral liquid 100 mg PO Q6H PRN cough 10/25/21 05/13/24 02/07/22 History
ipratropium 0.5 mg-albuterol 3 mg 3 ml inhalation R Q6HPRN PRN 10/25/21 05/13/24 02/07/22 History
(2.5 mg base)/3 mL nebulization wheezing SOB
soln
magnesium hydroxide 400 mg/5 mL 30 ml PO DAILY PRN if no bm x 3 10/25/21 05/13/24 Unknown History
oral suspension (Milk of Magnesia) days
melatonin 3 mg tablet 3 mg PO HS PRN insomnia 10/25/21 05/13/24 02/06/22 History
polyethylene glycol 3350 17 gram 17 g PO DAILY PRN constipation 10/25/21 05/13/24 Unknown History
oral powder packet (Miralax)
sodium phosphates 19 gram-7 118 ml KY ONCE PRN if dulcolax 10/25/21 05/13/24 Unknown History
gram/118 mL enema (Fleet Enema) ineffective
tamsulosin 0.4 mg capsule 0.4 mg PO DAILY@1730 Urinary issue 10/25/21 05/13/24 02/06/22 History
therapeutic multivitamin 1 tab feeding tube DAILY Supplement 10/25/21 05/13/24 02/07/22 History
zinc oxide 30.6 % topical cream 1 applic topical TID sacrum and 10/25/21 05/13/24 02/07/22 History
buttock
apixaban 2.5 mg tablet (Eliquis) 2.5 mg PO BID Blood clot 02/07/22 05/13/24 02/07/22 History
prevention/tx
formoterol fumarate 20 mcg/2 mL 2 ml inhalation R BID 02/07/22 05/13/24 02/07/22 History
solution for nebulization Lung/breathing issues
albuterol sulfate 2.5 mg/3 mL 2.5 mg (3 mL) inhalation R Q4HPRN 02/16/22 05/13/24 Unknown Rx
(0.083 %) solution for nebulization PRN SOB/cough #0 mL
albuterol sulfate 2.5 mg/3 mL 2.5 mg (3 mL) inhalation R QID #0 02/16/22 05/13/24 Unknown Rx
(0.083 %) solution for nebulization mL
budesonide 0.5 mg/2 mL suspension 0.5 mg (2 mL) inhalation R BID #0 02/16/22 05/13/24 Unknown Rx
for nebulization mL
ferrous sulfate 325 mg (65 mg 325 mg PO DAILY 05/13/24 05/13/24 Unknown History
iron) tablet
mirtazapine 15 mg tablet (Remeron) 15 mg PO HS 05/13/24 05/13/24 Unknown History
oxymetazoline 0.05 % nasal spray 2 spray intranasal Q12H PRN 05/13/24 05/13/24 Unknown History
(Afrin (oxymetazoline)) dryness/epitaxis
prednisone 10 mg tablet 10 mg PO DAILY 05/13/24 05/13/24 Unknown History
prednisone 10 mg tablet 20 mg PO DAILY 05/13/24 05/13/24 Unknown History
Review of Systems
Vitals / Labs / Diagnostic Testing
Vital Signs
Temp Pulse Resp BP Pulse Ox
97.3 F 103 98 84/59 98
05/13/24 12:00 05/13/24 11:09 05/13/24 11:09 05/13/24 10:30 05/13/24 11:09
Lab Data
05/13/24 06:44
05/13/24 06:44
Laboratory Results
05/13/24 05/13/24 05/13/24
06:28 06:44 13:01
PT 17.4 H
INR 1.40
APTT 38.6 H
pH 7.40 7.39
pCO2 38 H 39 H
pO2 150 H 85
HCO3 23.5 23.6
O2 Delivery Level 60
Microbiology
05/13/24 02:02 Nasal Swab Influenza Types A & B (HERBIE) - Final
Influenza A Positive, NAAT
Diagnostic Testing:
Physical Exam
-
HEENT: Normocephalic
Cardiovascular: Regular Rhythm
Respiratory: Wheeze (Bilateral wheezing on exam), Rhonchi (Right more than left rhonchi) and Accessory Resp Muscle Use (No sensory muscle use)
GI: Soft
Skin: Warm
General: Respiratory Distress
Exam:
Not in respiratory distress during my evaluation
Assessment
-
89-year-old patient with history of asthma presented to emergency room with respiratory distress. Noted to have influenza A along with pneumonia likely superimposed. Patient also quite bronchospastic.
#1. Acute respiratory failure, hypoxic, with significant bronchospasm
-Patient currently on BiPAP. Earlier in the day she was not very responsive however as the day has progressed patient is more awake alert and interactive
-Trial of BiPAP break for 2 hours and then resume and continue at bedtime
-Suspect respiratory failure is related to influenza infection along with pneumonia and exacerbation of her underlying obstructive airway disease.
-Continue DuoNeb 4 times daily scheduled, lower steroids to Solu-Medrol 40 mg every 12. Ideally would avoid steroids in the setting of influenza A however with significant bronchospasm currently steroids are indicated. Will aim to taper the dose
as soon as patient continues to show improvement.
-Repeat ABG at 1 PM, pH 7.39 with pCO2 of 39, pO2 of 85 with bicarb of 23.6, stable
#2. Influenza A infection with multifocal pneumonia possibly superimposed bacterial/aspiration.
-Continue vancomycin and cefepime. Follow-up on cultures.
-WBC elevated at 21.8 thousand with left shift
-ID service on case
-Tamiflu will be started once patient is safely able to take p.o. Currently she is on BiPAP and still somewhat somnolent hence will hold off on oral Tamiflu.
#3. Hypotension
-Pressure was borderline and responded well to 500 mL of LR bolus ordered this morning.
-Currently patient off pressors
-Continue to monitor, target MAP 65 or above
#4. Acute encephalopathy.
-CT head stat was performed this morning and was unremarkable without any acute change. Patient on chronic anticoagulation
-ABG was repeated which did not show any significant hypercapnia explaining mental status changes
-Patient continued to be more responsive through the day
-Suspect metabolic encephalopathy gradually improving
#5. Minimally elevated troponin,
-On review of prior lab work, essentially unchanged
#6. History of CVA with left hemiparesis.
-Will resume Eliquis once patient is able to safely take p.o.
#7. Paroxysmal A-fib with RVR
-Continue telemetry monitoring
-Rate better controlled, around 100-110
-Will resume Eliquis once patient is able to take p.o.
-Avoiding claus blocking agents in view of borderline blood pressure but if BP improves will consider low-dose beta-vilma or calcium channel blockers
[2024-05-13] MEDS: SOLU-MEDROL PF 40 MG IV (16:47)
[2024-05-13 17:53] LABS: Glucose - Point of Care 157 mg/dl (70-99)
[2024-05-13 19:33] LABS: B.E. -0.5 mmol/L; HCO3 24.2 mmol/L (21-28); PCO2 39 mmHg (32-35); PO2 100 mmHg (83-108)
--- NOTE | 2024-05-13 20:00 | PTCARENOTE ---
legal file clerk, pt opens eyes with care, no verbal response, lethargic, AFib HR 90s-1teens, B/L IV WNL. Sat 100% on continuous Bipap, crs t/o. pt turned, +small BM, skin care, CHG cloths, repositioned. new purewick placed. bed alarm on.
[2024-05-14] VITALS (19 sets, daily range): BP systolic 85–144; BP diastolic 41–106; PULSE 2–109; BMI 22.4; BMI 23.0
[2024-05-14 00:05] LABS: Glucose - Point of Care 161 mg/dl (70-99)
[2024-05-14] MEDS: NOVOLOG FLEXPEN-LOW RESISTANCE 1 UNITS SC (01:48)
[2024-05-14] MEDS: SOLU-MEDROL PF 40 MG IV (04:00)
--- NOTE | 2024-05-14 04:00 | PTCARENOTE ---
pt restless at times otherwise no change in pt assessment.
[2024-05-14 04:48] LABS: Hematocrit 36.5 % (37.0-47.0); Hemoglobin 11.6 g/dL (12.0-16.0); Mean Corp Hgb Conc. 31.8 g/dL (33.0-37.0); Mean Corpuscular Hgb 29.8 pg (27.0-31.0); Mean Corpuscular Volume 93.8 fL (81.0-99.0); Mean Platelet Volume 10.5 fL (7.4-10.4); Platelet Count 219 10^3/uL (130-400); Red Blood Cell Count 3.89 10^6/uL (4.20-5.40); Red Cell Dist. Width 16.3 % (11.5-14.5); White Blood Cell Count 20.6 10^3/uL (4.8-10.8)
[2024-05-14 04:55] LABS: B.E. -1.6 mmol/L; HCO3 22.9 mmol/L (21-28); O2 Saturation % 97.8 % (94-98); PCO2 37 mmHg (32-35); PO2 81 mmHg (83-108)
[2024-05-14 04:57] LABS: O2 Therapy 100%
[2024-05-14 05:13] LABS: Blood Urea Nitrogen 38 mg/dl (7-17); Calcium 8.2 mg/dl (8.4-10.2); Carbon Dioxide 22 mmol/L (22-30); Chloride 114 mmol/L (98-107); Estimated Creatinine Clearance 31 ml/min; Glucose 153 mg/dl (70-99); Magnesium 2.5 mg/dl (1.6-2.3); Phosphorus 3.9 mg/dl (2.5-4.5); Potassium 3.7 mmol/L (3.5-5.1); Sodium 145 mmol/L (135-145); Vancomycin Random 12.5 ug/ml; eGFR > 60.00
[2024-05-14] MEDS: NOVOLOG FLEXPEN-LOW RESISTANCE SC ×2 (06:12→12:11)
[2024-05-14 06:13] LABS: Glucose - Point of Care 141 mg/dl (70-99)
[2024-05-14] MEDS: DUONEB 3 ML INH ×4 (07:09→20:07)
--- NOTE | 2024-05-14 08:36 | PHA.VAN.FU ---
Vancomycin Assessment / Plan
- Assessment
Renal Function: Stable
WBC's are: Trending Down
Concomitant Antimicrobials: cefepime, oseltamivir
- Assessment - Therapeutic Drug Monitoring
Random Level: 12.5 - drawn ~15.5H after previous dose of 500mg
- Dosing Plan
Dosing by Level: Re-dose today (Vanc 750mg)
Will give slightly increased dosing today
Level appropriate but would have a little under 10 more hours of clearance for a Q24H dosing interval
Will keep dose by level for now
- Monitoring Plan
Random Level: 05/15 0600
- Follow Up
Pharmacy will continue to follow.
Vancomycin Follow UP
- -
Patient Age: 89
Patient Sex: Female
Vancomycin Day #: 2
Indication: Pulmonary/Respiratory
Requesting Provider: Dr. Vaca / Erickson
Pertinent Antimicrobial Allergies:
penicillins - unknown
Height / Weight:
Height 4 ft 10 in
Actual Weight 48.5 kg
Pertinent Past Medical History: influenza
- Vital Signs / Lab Results
Temp Pulse Resp BP Pulse Ox
98 F 104 24 85/53 97
05/14/24 07:41 05/14/24 07:12 05/14/24 07:12 05/14/24 06:05 05/14/24 07:12
Lab Results - Hematology
05/13/24 05/13/24 05/14/24
01:49 06:44 04:17
WBC 22.7 H 21.8 H 20.6 H
Band Neutrophils 17 H
Lab Results - Chemistry
05/13/24 05/13/24 05/14/24
01:49 06:44 04:17
BUN 29 H 31 H 38 H
Creatinine 0.9 0.8 0.8
Estimated Creat Clear
Albumin 3.0 L
0305/13/24 05/13/24
01:49 01:51 06:44
Lactic Acid 2.5 H Cancelled 1.6
Microbiology Results
05/14/24 04:17 Legionella Urinary Antigen - Final
Urine Negative for Legionella pneumophila Serogroup 1 antigen.
A negative result does not rule out the possiblity of
Legionella infection due to other serogroups or species of
Legionella. Clinical correlation is recommended.
Streptococcus pneumoniae Antigen (M - Final
Negative for Streptococcus pneumoniae antigen.
A negative result does not exclude infection with
Streptococcus pneumoniae. Clinical correlation is
recommended.
05/13/24 01:51 Blood Culture - Preliminary
Blood/Venous Positive culture in progress
Gram Stain - Preliminary
05/13/24 01:51 Blood Culture - Preliminary
Blood/Venous Positive culture in progress
Gram Stain - Final
05/13/24 02:02 Influenza Types A & B (HERBIE) - Final
Nasal Swab Influenza A Positive, NAAT
Therapeutic Drug Monitoring
Random Vancomycin 12.5 ug/ml 05/14/24 04:17
[2024-05-14 08:45] LABS: Glycohemoglobin (HgbA1c) 5.7 % (4.0-5.6)
--- NOTE | 2024-05-14 08:58 | W.PN.INTV ---
Today's Communication / Plan
Recommendations
As above
Assessment
-
89-year-old [id number]-[id number] female with past medical history of asthma, dementia, CVA with residual left-sided paralysis, dysphagia, hypertension, A-fib on Eliquis, GERD, urinary retention presenting from senior care to the ED due to acute
hypoxic respiratory failure and lethargy.
#Acute hypoxic respiratory failure
- Patient is currently on 4 L oxygen via nasal cannula, with BiPAP overnight. Wheezing improved from yesterday. She has a history of asthma. Tested flu positive in the ED.
- Initial AB.40/38/150/23.5 -- mildly elevated CO2 with normal pH
- ABG today: 7.40/37/81/22.9
- Likely in the setting of severe influenza, superimposed pneumonia, and asthma exacerbation. Cannot exclude aspiration pneumonia
#Hypotension
- Likely septic shock
- Patient received 1 L normal saline bolus in the ED and 500 mL LR bolus in the ICU
- Blood pressures remain soft, MAP greater than 65
- Patient is not currently on any pressors
- Likely in the setting of severe influenza, and superimposed/aspiration pneumonia
- Lactic acid downtrending, 2.5 --> 1.6
#Altered mental status
- Head CT was ordered given patient was on Eliquis, which showed no acute intracranial abnormality, old infarct suspected within the right temporal parietal lobe, partial obscuration of the left mastoid air cells and small amount of fluid within the
sphenoid sinuses.
- Patient is currently awake and alert.
- Likely in the setting of sepsis
#Bacteremia
- Blood culture positive for Streptococcus pyogenes
#Hypokalemia
#Elevated troponin, chronic
#Elevated proBNP
- Patient does not have a history of heart failure. Echo today showed EF 65 to 70%, severely dilated left and right atrium, mild to moderate MR, mild to moderate , moderate TR, estimated pulmonary artery pressure of 40 to 45 mmHg, small to medium
sized pericardial effusion without evidence of hemodynamic compromise -- likely viral pericardial effusion
#Atrial fibrillation, rate controlled
#Influenza A infection, severe
#Multifocal pneumonia, right lung
#Asthma exacerbation
#Leukocytosis
Conditions present prior to admission:
Dementia
CVA with left-sided weakness
Hypertension
Hyperlipidemia
Dysphagia
History of MRSA colonization
Plan:
RASS score 0. Patient is not complaining of any pain, awake and alert. Can consider restarting donepezil once able to take oral meds.
Maintain MAP>65. Will give LR 500 bolus and reassess.
Patient is currently in A-fib, rate controlled without any rate control medications. Goal rate<110. Can consider restarting Eliquis once able to take oral meds.
Breathing comfortably, in no acute distress. Currently on 4 L oxygen via nasal cannula, resume BiPAP overnight.
Continue DuoNebs as scheduled, taper steroids to Solu-Medrol 40 mg daily.
Patient remains n.p.o. Will order speech eval given patient is more alert today and advance diet if able.
Creatinine at baseline. Continue to monitor Cr and critical I/Os. Replete electrolytes as needed.
Blood cultures positive for Streptococcus pyogenes. Can consider narrowing antibiotics. Start oseltamivir once patient is able to take oral meds.
Trend wbc and monitor for fevers. Aspiration precautions.
Continue sliding scale insulin for steroid-induced hyperglycemia as needed. Maintain euglycemia with BG goal 140-180, avoid hypoglycemia.
Patient is medically stable to be downgraded from the ICU.
Subjective Dataa
Subjective Data
Date of Service:
Date of Service: May 14, 2024
Review of Systems
General: Other (Language barrier)
Objective Data
Data Reviewed
Vital Signs / I&O / Oxygen:
Vital Signs
Temp Pulse Resp BP Pulse Ox
98 F 104 24 85/53 97
05/14/24 07:41 05/14/24 07:12 05/14/24 07:12 05/14/24 06:05 05/14/24 07:12
Intake and Output
05/13/24 05/14/24 05/15/24
06:59 06:59 06:59
Intake Total 1000 / 1000
Output Total 150 / 150
Balance 850 / 850
SaO2 97
Nasal Cannula flow liters per 10
minute
Physical Exam
General: Respiratory Distress (n), Comfortable, Pain (n) and Fever (n)
HEENT: Normocephalic
Cardiovascular: S1-S2, Irregular Rhythm and Peripheral Edema (n)
Respiratory: Wheeze (Decreased wheezing compared to yesterday) and Non-Labored Respirations
GI: Soft, Non Distended and Tender (Mild tenderness on palpation of right upper quadrant, without guarding/rebound)
Neurology: Awake and Alert
Skin: Warm and Good Color
Labs/Micro/Reports
Lab Data
05/14/24 04:17
05/14/24 04:17
Laboratory Results
05/13/24 05/13/24 05/14/24
13:01 19:19 04:27
pH 7.39 7.40 7.40
pCO2 39 H 39 H 37 H
pO2 85 100 81 L
HCO3 23.6 24.2 22.9
O2 Delivery Level 100%
Microbiology
05/14/24 04:17 Urine Legionella Urinary Antigen - Final
Negative for Legionella pneumophila Serogroup 1 antigen.
A negative result does not rule out the possiblity of
Legionella infection due to other serogroups or species of
Legionella. Clinical correlation is recommended.
05/14/24 04:17 Urine Streptococcus pneumoniae Antigen (M - Final
Negative for Streptococcus pneumoniae antigen.
A negative result does not exclude infection with
Streptococcus pneumoniae. Clinical correlation is
recommended.
05/13/24 01:51 Blood/Venous Blood Culture - Preliminary
Positive culture in progress
05/13/24 01:51 Blood/Venous Gram Stain - Preliminary
05/13/24 01:51 Blood/Venous Blood Culture - Preliminary
Positive culture in progress
05/13/24 01:51 Blood/Venous Gram Stain - Final
05/13/24 02:02 Nasal Swab Influenza Types A & B (HERBIE) - Final
Influenza A Positive, NAAT
--- NOTE | 2024-05-14 09:40 | PTCARENOTE ---
Discussed with care team regarding pt's ability to swallow pills unknown with history of dysphagia from prior stroke. She speaks Cantonese. She was informed of the plan of care, repositioned. Moist thick non-productive cough. Allowed me to clean her
lips but not her mouth. When flushing her right FA she pulled back and moaned. Left hand #20g IV flushed and patent. Lungs coarse in upper lobes, diminished in the bases. Tolerating 4 liters nasal cannula. +BSx4. Purwick intact. Stage 1 on
buttocks. Repositioned off her sacrum. Safe environment maintained. Maintained droplet precautions.
[2024-05-14] MEDS: LR 500 IV (11:16)
[2024-05-14] MEDS: STERILE WATER FOR INJECTION 10 ML IV (11:23)
[2024-05-14] MEDS: MAXIPIME 1000 MG IV (11:23)
--- NOTE | 2024-05-14 11:40 | PTCARENOTE ---
2 sets of blood cultures obtained. She is a very difficult abdelrahman. Clarifying with Dr. Almendarez if a repeat random Vancomycin level required if there was a level resulted this AM.
[2024-05-14] MEDS: KCL 270 MEQ IV (11:47)
[2024-05-14 11:48] LABS: Glucose - Point of Care 101 mg/dl (70-99)
--- NOTE | 2024-05-14 11:57 | W.PN.ID1 ---
Date of Service
Date of Service: May 14, 2024
Today's Communication
See below.
Assessment / Plan
# Severe influenza A infection
# Superimposed right sided PNA (risk for MRSA, MSSA, Strep pneumo, or Group A strep co-infection with influenza).
# GPC pairs and chains bacteremia - suspect streptococcus (lung source) > enterococcus
# Acute hypoxemic respiratory failure - off Bipap, now on NC
# Septic shock off pressor
# Fever - trending down
# Leukocytosis persists, now on steroid
# Decreased mental status - improving
# hx MRSA colonization
- Oseltamivir 30mg po bid for flu on hold due to lethargy and no enteral access
Start antiviral when able to take po. Can give suspension formulation
Need to treat hospitalized patients even if past the 48 hours window as per guideline.
- Repeat blood cx's
- Continue Vancomycin and cefepime for PNA and bacteremia pending cx data
- Trend temps/wbc/vitals, clinical condition.
# Conditions prior to admission
Diabetes mellitus
Dementia
CVA with left-sided weakness and dysphagia
Asthma
Atrial fibrillation on Eliquis
Hypertension
GERD
Bilateral total knee replacements
SNF resident
Chief Complaint
-: Bacteremia
Subjective / Review of Systems
Off Bipap. More alert.
Vital Signs / Physical Exam
Vital Signs
Vital Signs
Temp Pulse Resp BP Pulse Ox
98.6 F 100 20 109/80 97
05/14/24 11:02 05/14/24 11:33 05/14/24 11:33 05/14/24 11:00 05/14/24 11:33
Physical Exam
Constitutional: Acutely Ill
Eyes: No Conjunctival Hemorrhage and Sclera Anicteric
Cardiovascular: Irregular Rate, S1/S2 and Other (tachycardic)
Pulmonary: Rales (crackles bases)
Gastrointestinal: Soft, Non Tender, Non Distended and Normal Bowel Sounds
Genito-Urinary: Negative CVA Tenderness
Extremities: Negative Edema
Neurological: Awake and Other (Drowsy)
Objective Data
Lab Data
Lab Results
05/14/24 04:17
05/14/24 04:17
PT 17.4 Sec (11.4-14.6) H 05/13/24 06:44
INR 1.40 05/13/24 06:44
APTT 38.6 Sec (23.4-35.0) H 05/13/24 06:44
Estimated Creat Clear 31 ml/min 05/14/24 04:17
Lactic Acid 1.6 mmol/L (0.7-2.0) 05/13/24 06:44
Total Bilirubin 1.8 mg/dl (0.2-1.3) H 05/13/24 01:49
AST 27 U/L (14-36) 05/13/24 01:49
ALT 25 U/L (0-35) 05/13/24 01:49
Alkaline Phosphatase 129 U/L (38-126) H 05/13/24 01:49
Most recent labs reviewed.
Micro Results:
05/14/24 04:17 Nasal Screen MRSA (PCR) - Final
Nose MRSA not detected - performed by PCR methodology.
05/14/24 04:17 Legionella Urinary Antigen - Final
Urine Negative for Legionella pneumophila Serogroup 1 antigen.
A negative result does not rule out the possiblity of
Legionella infection due to other serogroups or species of
Legionella. Clinical correlation is recommended.
Streptococcus pneumoniae Antigen (M - Final
Negative for Streptococcus pneumoniae antigen.
A negative result does not exclude infection with
Streptococcus pneumoniae. Clinical correlation is
recommended.
05/14/24 04:17 MRSA Screen - Pending
Nose
05/13/24 01:51 Blood Culture - Preliminary
Blood/Venous Positive culture in progress
Gram Stain - Preliminary
05/13/24 01:51 Blood Culture - Preliminary
Blood/Venous Positive culture in progress
Gram Stain - Final
05/13/24 02:02 Influenza Types A & B (HERBIE) - Final
Nasal Swab Influenza A Positive, NAAT
05/13/24 CXR: There is new airspace disease involving the right upper and lower lobes consistent with pneumonia
05/13/[address]: No acute intracranial abnormalities appreciated. Old infarct suspected within the right temporoparietal lobe. Partial obscuration of the left mastoid air cells. Please correlate for symptoms of mastoiditis.
--- NOTE | 2024-05-14 12:39 | PTCARENOTE ---
No changes in assessment. IVF bolus infusing now. Daughter Stephanie is aware of her transfer to room 330.
[2024-05-14] MEDS: ELIQUIS 2.5 MG PO ×2 (13:07→20:03)
[2024-05-14] MEDS: TAMIFLU 30 MG PO ×2 (13:08→20:04)
--- NOTE | 2024-05-14 13:30 | PTCARENOTE ---
Left hand swollen. S/P phlebotomy in that armx2. +blood return from the left hand #20g catheter. Flushed without difficulty. Pericare for soft green BM. Skin barrier applied to buttock/sacral region, new pure wick applied, secured with brief.
Daughter transported with her mother wearing a mask. Call [phone] to provide update regarding IDDS4 w/thins diet, and that left hand IV assessed for infiltrate, IV vanco to be tubed to them.
--- NOTE | 2024-05-14 13:43 | PTOTSP ---
Speech Therapy Evaluation:
Pt presents with oropharyngeal swallow function that is likely at/near baseline s/p CVA. Pt no longer followed by AIR VALVE MECHANIC services at [facility] given 'plateau' with pt being on safest diet of puree/thin liquids. Despite no overt s/sx of aspiration at
bedside, pt remains at increased risk given hx of asthma, dementia, CVA, GERD, dependence for feeding, and bedbound/wheelchair bound status at baseline. CXR with RUL/RLL PNA and WBC elevated, potentially in the setting of flu. [employer] VALVE MECHANIC to closely follow.
Recommend:
1. Initiate baseline diet of puree/thins via straw (preference)
2. Medications crushed in puree
3. 1:1 assistance and supervision with PO intake
4. Strict aspiration and reflux precautions
5. Low threshold for NPO. d/c oral diet if concerned for aspiration or worsening in chest imaging/respiratory status
6. AIR VALVE MECHANIC to closely follow to monitor tolerance of diet and determine if pt would benefit from instrumental assessment.
--- NOTE | 2024-05-14 13:51 | CM ---
CM is following re: discharge planning.
Discussed in Rounds, reviewed pt's chart, met with pt. Per Rounds meeting, pt is downgraded from ICU level of care.
Pt born and raised in [place], primary language is Cantonese. Pt has 5 supportive children. Per daughter pt has been a care home care resident at [facility] since July [id number], on Medicaid bed hold till 05/26/24. Pt is a w/c bound at
baseline, Hoer lift for transferring.
Per [facility] liaison, pt is a care home care resident, on bed hold and pt will be accepted back when medically stable.
Pt's clinical faxed to [facility] for a review.
D/C plan: return back to [facility] when medically stable for a LTC.
CM will follow with discharge plan updates as hospitalization progresses
[2024-05-14 14:08] LABS: Glucose - Point of Care 116 mg/dl (70-99)
[2024-05-14] MEDS: CARDIZEM 10 MG IV (14:08)
[2024-05-14] MEDS: CARDIZEM 60 MG PO ×3 (14:09→21:57)
--- NOTE | 2024-05-14 14:09 | W.PN.HOSP.TC ---
Today's Communication/Plan
-
Mental and respiratory status improved
Noted with gram-positive cocci bacteremia
Initiate oral diet with aspiration precautions as recommended.
Initiate Tamiflu as able to take oral medications
Continue IV antibiotics: Cefepime/vancomycin
Start Cardizem 60 mg 3 times daily and continue monitoring and adjusting rate control medications baseline continue Eliquis
Assessment / Plan
Assessment / Plan
Impression:
Acute hypoxic/hypercarbic respiratory failure
Severe influenza A infection
Right sided multifocal pneumonia suspected superimposed on influenza, also with reasonable aspiration risk in patient with CVA
Gram-positive bacteremia suspect streptococcal
Sepsis with septic shock requiring vasopressors
Toxic metabolic encephalopathy secondary to above.
Type II [place].
Elevated pro CHF BNP
MRSA colonization
Other conditions:
Status post CVA with left hemiparesis. Bedbound. care home resident.
Chronic atrial fibrillation baseline anticoagulation with Eliquis
Hypertension
Dyslipidemia
History of PEG tube. Currently on modified diet with aspiration precautions
Plan:
Acute hypoxic respiratory failure. Some degree of relative hypercarbia in the settings of severe influenza A/bacterial pneumonia.
Improved with decreased oxygen requirements
Sepsis with septic shock and hypotension secondary to influenza A/bacterial pneumonia.
Blood culture positive for gram-positive cocci likely streptococcal pending final
Influenza A bronchitis with bronchospasm
Streptococcal bacteremia suspect respiratory source secondary to pneumonia/bronchitis
Chest x-ray 05/13 with no consolidation.
Continue Tamiflu.
Continue vancomycin, cefepime pending final blood cultures
Repeat blood culture for clearance
Wean off IV fluids as blood pressure improves.
Taper corticosteroids, Solu-Medrol down to 40 mg IV 24 hours
Chronic atrial fibrillation.
A-fib with RVR on presentation. Currently rate controlled
Not on any rate control medications prior to admission
Continue telemetry monitoring.
Rate remains suboptimally controlled
Give single dose of Cardizem 10 mg now with initiation of short acting Cardizem 60 mg 3 times daily.
Resume Eliquis when able to take p.o.
Toxic metabolic encephalopathy secondary to sepsis.
Improved with mental status back to baseline
Type II IA. Flat troponins.
ECG with no ischemia
Echocardiogram 05/13: LVEF 65-70%. Normal regional wall motion. Normal RV size and function. Mild to moderate aortic stenosis PAOLO 1.4 cm�. Moderate TR. Pulmonary artery pressure 40 to 45 mmHg. Small to medium sized pericardial effusion without
evidence of hemodynamic compromise.
Monitor volume status closely.
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
History of CVA with left hemiparesis. Functional quadriplegia.
Bedbound/wheelchair-bound longterm resident
Continue supportive care
Continue donepezil when able to take p.o.
Goals of care discussion with patient's daughter at the bedside.
Full code.
DVT prophylaxis mechanical/Eliquis
Anticipated Discharge: > 48 hours
Subjective/Interval History
-
Date of Service: May 14, 2024
Objective Data
-
Labs:
Laboratory Results
05/14/24 05/14/24
04:17 04:27
WBC 20.6 H
Hgb 11.6 L
Hct 36.5 L
Plt Count 219
HCO3 22.9
Sodium 145
Potassium 3.7
Chloride 114 H
Carbon Dioxide 22
BUN 38 H
Creatinine 0.8
Glucose 153 H
Calcium 8.2 L
Vital Signs:
Vital Signs
Temp Pulse Resp BP Pulse Ox
97.7 F 141 24 144/91 92
05/14/24 13:00 05/14/24 13:00 05/14/24 13:00 05/14/24 13:00 05/14/24 13:00
I&O
05/13/24 05/14/24 05/15/24
06:59 06:59 06:59
Intake Total 1000 / 1000 687.5 / 687.5
Output Total 150 / 150 50 / 50
Balance 850 / 850 637.5 / 637.5
Physical Exam
-
General: Well Developed and No Apparent Distress
HEENT: Normocephalic, Atraumatic and Moist Mucous Membranes
Respiratory: Clear to Auscultation
Cardiac: Regular Rhythm and S1/S2; Negative Murmur, Rub or Gallop
GI: Soft, Nontender, Nondistended and Normal Bowel Sounds; Negative Organomegaly
Rectal: Deferred by Provider
Musculoskeletal: No Clubbing, No Cyanosis and No Edema
Skin: Negative Rash
Neuro: Awake, Alert and Other (Left hemiparesis)
[2024-05-14] MEDS: STERILE WATER FOR INJECTION 20 ML IV (16:23)
[2024-05-14] MEDS: ROCEPHIN 2000 MG IV (16:23)
[2024-05-14 18:37] LABS: Glucose - Point of Care 206 mg/dl (70-99)
[2024-05-14] MEDS: NOVOLOG FLEXPEN-LOW RESISTANCE 2 UNITS SC (18:38)
[2024-05-14] MEDS: PULMICORT 0.5 MG INH (20:07)
[2024-05-14 21:20] LABS: Glucose - Point of Care 204 mg/dl (70-99)
[2024-05-14] MEDS: ARICEPT 5 MG PO (21:57)
[2024-05-14] MEDS: REMERON 15 MG PO (21:57)
[2024-05-15] VITALS (7 sets, daily range): BP systolic 99–140; BP diastolic 67–84; PULSE 2–99; BMI 23.6
[2024-05-15 06:43] LABS: % Basophils 0.3 % (0-2); % Eosinophils 0.1 % (0-6); % Immature Granulocytes 4.2 % (0-0.5); % Lymphocytes 3.6 % (20.5-51.1); % Neutrophils 88.8 % (42.2-75.2); Absolute Basophils 0.1 10^3/uL (0-0.2); Absolute Immature Granulocytes 0.6 10^3/uL (0-0.05); Absolute Lymphocytes 0.5 10^3/uL (1.2-3.4); Absolute Monocytes 0.4 10^3/uL (0.1-0.6); Hematocrit 31.8 % (37.0-47.0); Hemoglobin 10.6 g/dL (12.0-16.0); Mean Corp Hgb Conc. 33.3 g/dL (33.0-37.0); Mean Corpuscular Hgb 30.6 pg (27.0-31.0); Mean Corpuscular Volume 91.9 fL (81.0-99.0); Mean Platelet Volume 11.3 fL (7.4-10.4); Nucleated Red Blood Cells % 0 %; Platelet Count 239 10^3/uL (130-400); Red Blood Cell Count 3.46 10^6/uL (4.20-5.40); Red Cell Dist. Width 16.6 % (11.5-14.5); White Blood Cell Count 14.6 10^3/uL (4.8-10.8)
[2024-05-15 07:10] LABS: Blood Urea Nitrogen 53 mg/dl (7-17); Calcium 8.8 mg/dl (8.4-10.2); Carbon Dioxide 19 mmol/L (22-30); Chloride 120 mmol/L (98-107); Estimated Creatinine Clearance 22 ml/min; Glucose 165 mg/dl (70-99); Potassium 4.6 mmol/L (3.5-5.1); Sodium 147 mmol/L (135-145); eGFR 48.03
[2024-05-15] MEDS: DUONEB 3 ML INH ×4 (07:15→20:24)
[2024-05-15] MEDS: PULMICORT 0.5 MG INH ×2 (07:16→20:24)
[2024-05-15] MEDS: CARDIZEM 60 MG PO (07:32)
[2024-05-15] MEDS: ELIQUIS 2.5 MG PO ×2 (07:32→20:59)
[2024-05-15] MEDS: SOLU-MEDROL PF 40 MG IV (07:33)
[2024-05-15] MEDS: TAMIFLU 30 MG PO (07:36)
[2024-05-15 08:11] LABS: Glucose - Point of Care 158 mg/dl (70-99)
[2024-05-15] MEDS: NOVOLOG FLEXPEN-LOW RESISTANCE 1 UNITS SC (08:27)
--- NOTE | 2024-05-15 09:10 | W.PN.ID1 ---
Addendum entered and electronically signed by Bobbi Almendarez MD 05/15/24 10:51:
CrCl decreased today. Adjust Oseltamivir dose to 30mg qd.
Original Note:
Date of Service
Date of Service: May 15, 2024
Today's Communication
Continue Oseltamivir and ceftriaxone.
Assessment / Plan
# Severe influenza A infection
# Superimposed right sided PNA
# Group A strep bacteremia - lung source, risk for co-infection with Influenza
# Acute hypoxemic respiratory failure - resolved
# s/p Septic shock
# Fever - resolved
# Leukocytosis trending down
# Decreased mental status - resolving
# hx MRSA colonization
- Continue Oseltamivir 30mg po bid (d2) x 5d (10 doses)
- Repeat blood cx's pending
- Narrowed Vancomycin/cefepime to ceftriaxone (d4 abx)
- Trend wbc
# Conditions prior to admission
Diabetes mellitus
Dementia
CVA with left-sided weakness and dysphagia
Asthma
Atrial fibrillation on Eliquis
Hypertension
GERD
Bilateral total knee replacements
SNF resident
Chief Complaint
-: Bacteremia
Subjective / Review of Systems
Awake, alert, says thank you.
Vital Signs / Physical Exam
Vital Signs
Vital Signs
Temp Pulse Resp BP Pulse Ox
97.2 F 86 18 123/72 94
05/15/24 07:54 05/15/24 07:54 05/15/24 07:54 05/15/24 07:54 05/15/24 07:54
Physical Exam
Constitutional: Comfortable
Eyes: No Conjunctival Hemorrhage and Sclera Anicteric
Cardiovascular: Regular Rate and S1/S2
Pulmonary: Rales (crackles )
Gastrointestinal: Soft, Non Tender, Non Distended and Normal Bowel Sounds
Genito-Urinary: Negative CVA Tenderness
Extremities: Negative Edema
Neurological: Awake and Alert; Negative Meningeal Signs
Objective Data
Lab Data
Lab Results
05/15/24 06:08
05/15/24 06:08
PT 17.4 Sec (11.4-14.6) H 05/13/24 06:44
INR 1.40 05/13/24 06:44
APTT 38.6 Sec (23.4-35.0) H 05/13/24 06:44
Estimated Creat Clear 22 ml/min 05/15/24 06:08
Lactic Acid 1.6 mmol/L (0.7-2.0) 05/13/24 06:44
Total Bilirubin 1.8 mg/dl (0.2-1.3) H 05/13/24 01:49
AST 27 U/L (14-36) 05/13/24 01:49
ALT 25 U/L (0-35) 05/13/24 01:49
Alkaline Phosphatase 129 U/L (38-126) H 05/13/24 01:49
Most recent labs reviewed.
Micro Results:
05/14/24 12:08 Blood Culture - Pending
Blood/Venous
05/13/24 01:51 Blood Culture - Preliminary
Blood/Venous Streptococcus pyogenes
Gram Stain - Final
05/13/24 01:51 Blood Culture - Preliminary
Blood/Venous Streptococcus pyogenes
Gram Stain - Preliminary
05/14/24 11:53 Blood Culture - Pending
Blood/Venous
05/14/24 04:17 Nasal Screen MRSA (PCR) - Final
Nose MRSA not detected - performed by PCR methodology.
05/14/24 04:17 Legionella Urinary Antigen - Final
Urine Negative for Legionella pneumophila Serogroup 1 antigen.
A negative result does not rule out the possiblity of
Legionella infection due to other serogroups or species of
Legionella. Clinical correlation is recommended.
Streptococcus pneumoniae Antigen (M - Final
Negative for Streptococcus pneumoniae antigen.
A negative result does not exclude infection with
Streptococcus pneumoniae. Clinical correlation is
recommended.
05/13/24 02:02 Influenza Types A & B (HERBIE) - Final
Nasal Swab Influenza A Positive, NAAT
05/13/24 CXR: There is new airspace disease involving the right upper and lower lobes consistent with pneumonia
05/13/[address]: No acute intracranial abnormalities appreciated. Old infarct suspected within the right temporoparietal lobe. Partial obscuration of the left mastoid air cells. Please correlate for symptoms of mastoiditis.
[2024-05-15 11:39] LABS: Glucose - Point of Care 223 mg/dl (70-99)
--- NOTE | 2024-05-15 12:09 | VATNOTE ---
During routine assessment, swelling noted to L hand. Flushes without resistance. Discussed with PCN, peripheral vascular ultrasound recommended.
[2024-05-15] MEDS: NOVOLOG FLEXPEN-LOW RESISTANCE 2 UNITS SC (12:42)
--- NOTE | 2024-05-15 12:50 | W.PN.PUL3 ---
Today's Communication / Plan
-
Stable on RA, aspiration risk is high, speech following
Currently on nebs QID, add mucinex as well
Abx per ID
Repeat CXR in AM
BIPAP at night
PT/OT assessment for discharge planning
Assessment
-
89-year-old patient with history of asthma presented to emergency room with respiratory distress. Noted to have influenza A along with pneumonia likely superimposed. Patient also quite bronchospastic.
Acute respiratory failure, hypoxic, with significant bronchospasm
Influenza A infection with multifocal pneumonia possibly superimposed bacterial/aspiration.
GPC Bacteremia
Hypotension-resolved
Acute encephalopathy, suspect primarily metabolic, improved
Minimally elevated troponin
Paroxysmal A-fib with RVR
Conditions present prior to admission:
Dementia
CVA with left-sided weakness
Hypertension
Hyperlipidemia
Dysphagia
History of MRSA colonization
Plan
Currently stable on RA
Kang noted post meal, daughter states she is already on pureed diet
Speech following
Quite improved, patient currently off BiPAP, wheezing significantly improved.
Lower steroids to once a day, continue DuoNebs, nightly BiPAP--can likely transition to PO steroids in AM if continues to improve
Suspect respiratory failure is related to influenza infection along with aspiration pneumonia and exacerbation of her underlying obstructive airway disease.
Continue DuoNeb 4 times daily scheduled
On vancomycin and cefepime. Follow-up on cultures.
Strep pyogenes on culture so far, await ID recommendations for further antibiotic adjustment
ID service on case
Tamiflu will be started once patient is safely able to take p.o.
Complete course
CVA history, PT/OT, speech to follow
Ongoing PO diet may be an issue
Aspiration precautions
Repeat CXR in AM
Continue airway clearance measures
Add Mucinex QID
Discharge planning once cleared by ID for PO course
Diagnostic Data
Chest X-Ray: 05/13/24- There is new airspace disease involving the right upper and lower lobes consistent with pneumonia
02/14/22- Horizontal band of increased density within the right midlung, new from prior examination, with appearance compatible with discoid atelectasis. Subtle 8 mm nodular opacity projecting over the lateral aspect of the right upper lung, as
described. See above discussion. Subtle pleural density in the lateral aspect of the left lower hemithorax, perhaps pleural invagination from adjacent old rib fractures. Improvement in bilateral basilar atelectasis since most recent radiograph of
February 10, 2022. Cardiomegaly with no convincing evidence for pulmonary edema.
CT Scan:
Echo: 05/13/24- Left ventricular ejection fraction is 65-70%. Normal regional wall motion. -Normal right ventricular size and function. -Severely dilated left atrium. Severely dilated right atrium. -Mild to moderate mitral regurgitation. -Mild to
moderate aortic stenosis; peak/mean gradients 14/7 mmHg, calculated PAOLO 1.4 cm2. -Moderate tricuspid regurgitation. Estimated pulmonary artery pressure of 40-45 mmHg. -Small to medium-sized pericardial effusion without evidence of hemodynamic
compromise. Compared to previous echo on 02/13/2022, progressive biatrial enlargement is noted, slightly progressive tricuspid regurgitation, and a pericardial effusion are now noted.
PFT's:
Reports and relevant images were personally reviewed.
------
Total time spent on this consultation/encounter __51__ minutes which includes review of history, physical exam, medications, laboratory data, personal review of imaging, extensive review of outpatient records, discussion with care team and
respiratory therapy.
Subjective Data
-
Date of Service:
Date of Service: May 15, 2024
Chief Complaint: Pulmonary Follow Up
Subjective:
Stable on RA, daughter at bedside
Noted some wheezing and ronchi after her lunch which is 'normal' for her
Improved since admission
Objective Data
Data Reviewed
Vital Signs / I&O / Oxygen:
Vital Signs
Temp Pulse Resp BP Pulse Ox
98.6 F 82 17 140/84 94
05/15/24 11:35 05/15/24 11:35 05/15/24 11:35 05/15/24 11:35 05/15/24 11:35
Intake and Output
05/14/24 05/15/24 05/16/24
06:59 06:59 06:59
Intake Total 1000 / 1000 737.5 / 737.5
Output Total 150 / 150 350 / 350
Balance 850 / 850 387.5 / 387.5
SaO2 94
Nasal Cannula flow liters per 1
minute
Physical Exam
General: Comfortable and Other (NAD)
HEENT: Normocephalic, Anicteric and Moist Mucous Membranes
Cardiovascular: S1-S2 and Regular Rhythm
Respiratory: Rhonchi and Non-Labored Respirations
GI: Soft, Non Distended and Non Tender
Neurology: Awake, Alert and Other (non Guamanian speaking)
Skin: Warm and Dry
Labs/Micro/Reports
Lab Data
05/15/24 06:08
05/15/24 06:08
Microbiology
05/14/24 11:53 Blood/Venous Blood Culture - Preliminary
No Growth in 24 hours- Final report to follow
05/14/24 12:08 Blood/Venous Blood Culture - Preliminary
No Growth in 24 hours- Final report to follow
05/13/24 01:51 Blood/Venous Blood Culture - Final
Streptococcus pyogenes
05/13/24 01:51 Blood/Venous Gram Stain - Final
05/13/24 01:51 Blood/Venous Blood Culture - Preliminary
Streptococcus pyogenes
05/13/24 01:51 Blood/Venous Gram Stain - Preliminary
05/14/24 04:17 Nose Nasal Screen MRSA (PCR) - Final
MRSA not detected - performed by PCR methodology.
05/14/24 04:17 Urine Legionella Urinary Antigen - Final
Negative for Legionella pneumophila Serogroup 1 antigen.
A negative result does not rule out the possiblity of
Legionella infection due to other serogroups or species of
Legionella. Clinical correlation is recommended.
05/14/24 04:17 Urine Streptococcus pneumoniae Antigen (M - Final
Negative for Streptococcus pneumoniae antigen.
A negative result does not exclude infection with
Streptococcus pneumoniae. Clinical correlation is
recommended.
05/13/24 02:02 Nasal Swab Influenza Types A & B (HERBIE) - Final
Influenza A Positive, NAAT
--- NOTE | 2024-05-15 12:53 | CM ---
Patient seen at bedside, Patient from [facility] and plan is to return after 05/18/24. CM will continue to follow for discharge planning needs.
Plan; return to SNF; [facility] when medically appropriate.
--- NOTE | 2024-05-15 15:19 | PN.CDI ---
CDI
- -
CDI:
Physician Documentation Request
Admit Date: 05/13/24 05:08
Dear Doctor Heather,
Please review the following and provide your response in the progress notes.
Clinical Indicators:
PN, 3
#Type II ID.
#...Flat troponins.
#ECG with no ischemia
#Echocardiogram 3: LVEF 65-70%. Normal regional wall motion. Normal RV size and function. Mild to moderate aortic stenosis PAOLO 1.4 cm�. Moderate TR. Pulmonary artery pressure 40 to 45 mmHg. Small to medium sized pericardial effusion without
evidence of hemodynamic compromise.
Laboratory Tests
05/13/24
01:49
Troponin I 0.035 H*
Please clarify the following regarding the etiology of the troponin:
Non ischemic myocardial injury
Abnormal lab value,clinically insignificant
Other (please specify)
Type of ID
Type I
Type II (due to demand ischemia)
Other (Type 3, 4a, 4b, 4c, 5) please specify
Use of terms such as suspected, likely, concern for, or probable (associated with a specific diagnosis that is being evaluated, monitored, or treated as if it exists) are acceptable and can be coded in the inpatient setting, when documented at the
time of discharge.
Thank you,
Cindy Cabrera RN BSN CCDS
CDI Specialist
please contact via tiger text
Please use your independent medical judgment in providing your response.
--- NOTE | 2024-05-15 15:58 | VATNOTE ---
"Received report on left hand swelling; assessed personally; decision made by this VAT RN to remove left had IV and restart in right arm. Swellling noted to be approx. +3; left had had been elevated on pillow. Spoke with PCN, who spoke with "Bennie"Heather and he did not feel US was needed. According to daughter, left hand swelling is not new."
--- NOTE | 2024-05-15 16:03 | W.PN.HOSP.TC ---
Today's Communication/Plan
-
Continue antibiotics as per ID
Oxygen supplementation if required
Nightly BiPAP.
Transition to long acting Cardizem for rate control.
Physical therapy assessment
Discussed with patient's daughter at the bedside
Assessment / Plan
Assessment / Plan
Impression:
Acute hypoxic/hypercarbic respiratory failure
Severe influenza A infection
Right sided multifocal pneumonia suspected superimposed on influenza, also with reasonable aspiration risk in patient with CVA
Gram-positive bacteremia suspect streptococcal
Sepsis with septic shock requiring vasopressors
Toxic metabolic encephalopathy secondary to above.
Type II [place].
Elevated pro CHF BNP
MRSA colonization
Other conditions:
Status post CVA with left hemiparesis. Bedbound. correction resident.
Chronic atrial fibrillation baseline anticoagulation with Eliquis
Hypertension
Dyslipidemia
History of PEG tube. Currently on modified diet with aspiration precautions
Plan:
Acute hypoxic respiratory failure. Some degree of relative hypercarbia in the settings of severe influenza A/bacterial pneumonia.
Improved with decreased oxygen requirements
Sepsis with septic shock and hypotension secondary to influenza A/bacterial pneumonia.
Blood culture positive for gram-positive cocci likely streptococcal pending final
Influenza A bronchitis with bronchospasm
Streptococcal bacteremia suspect respiratory source secondary to pneumonia/bronchitis
Chest x-ray 05/13 with no consolidation.
Continue Tamiflu.
Antibiotic consolidated to ceftriaxone
Repeat blood culture for clearance
Wean off IV fluids as blood pressure improves.
Taper corticosteroids, Solu-Medrol down to 40 mg IV 24 hours
Chronic atrial fibrillation.
A-fib with RVR on presentation. Currently rate controlled
Not on any rate control medications prior to admission
Continue telemetry monitoring.
Rate better controlled with introduction of Cardizem. Transition to long-acting Cardizem in a.m.
Toxic metabolic encephalopathy secondary to sepsis.
Improved with mental status back to baseline
Type II IL. Flat troponins.
ECG with no ischemia
Echocardiogram 3/: LVEF 65-70%. Normal regional wall motion. Normal RV size and function. Mild to moderate aortic stenosis PAOLO 1.4 cm�. Moderate TR. Pulmonary artery pressure 40 to 45 mmHg. Small to medium sized pericardial effusion without
evidence of hemodynamic compromise.
Monitor volume status closely.
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
History of CVA with left hemiparesis. Functional quadriplegia.
Bedbound/wheelchair-bound longterm resident
Continue supportive care
Continue donepezil when able to take p.o.
Goals of care discussion with patient's daughter at the bedside.
Full code.
DVT prophylaxis mechanical/Eliquis
Anticipated Discharge: 24 - 48 hours
Subjective/Interval History
-
Date of Service: May 15, 2024
Objective Data
-
Labs:
Laboratory Results
05/15/24
06:08
WBC 14.6 H
Hgb 10.6 L
Hct 31.8 L
Plt Count 239
Sodium 147 H
Potassium 4.6
Chloride 120 H
Carbon Dioxide 19 L
BUN 53 H
Creatinine 1.1 H
Glucose 165 H
Calcium 8.8
Vital Signs:
Vital Signs
Temp Pulse Resp BP Pulse Ox
98.9 F 82 16 113/67 93
05/15/24 15:05 05/15/24 15:51 05/15/24 15:51 05/15/24 15:05 05/15/24 15:51
I&O
05/14/24 05/15/24 05/16/24
06:59 06:59 06:59
Intake Total 1000 / 1000 737.5 / 737.5
Output Total 150 / 150 350 / 350
Balance 850 / 850 387.5 / 387.5
Physical Exam
-
General: Well Developed and No Apparent Distress
HEENT: Normocephalic, Atraumatic and Moist Mucous Membranes
Respiratory: Clear to Auscultation
Cardiac: Regular Rhythm and S1/S2; Negative Murmur, Rub or Gallop
GI: Soft, Nontender, Nondistended and Normal Bowel Sounds; Negative Organomegaly
Rectal: Deferred by Provider
Musculoskeletal: No Clubbing, No Cyanosis and No Edema
Skin: Negative Rash
Neuro: Awake, Alert and Other (Left hemiparesis)
[2024-05-15] MEDS: STERILE WATER FOR INJECTION 20 ML IV (16:16)
[2024-05-15] MEDS: ROCEPHIN 2000 MG IV (16:16)
[2024-05-15 16:39] LABS: Glucose - Point of Care 283 mg/dl (70-99)
[2024-05-15] MEDS: NOVOLOG FLEXPEN-LOW RESISTANCE 3 UNITS SC (17:21)
[2024-05-15] MEDS: ROBITUSSIN 100 MG PO ×2 (17:21→21:01)
[2024-05-15] MEDS: ARICEPT 5 MG PO (21:01)
[2024-05-15] MEDS: REMERON 15 MG PO (21:01)
[2024-05-16] VITALS (9 sets, daily range): BP systolic 102–130; BP diastolic 71–91; PULSE 2–98; BMI 23.6
[2024-05-16] MEDS: PULMICORT 0.5 MG INH ×2 (07:28→18:20)
[2024-05-16] MEDS: DUONEB 3 ML INH ×4 (07:28→18:20)
[2024-05-16 07:31] LABS: Glucose - Point of Care 172 mg/dl (70-99)
[2024-05-16] MEDS: ROBITUSSIN 100 MG PO ×4 (07:51→20:42)
[2024-05-16] MEDS: CARDIZEM CD 180 MG PO (07:52)
[2024-05-16] MEDS: SOLU-MEDROL PF 40 MG IV (07:52)
[2024-05-16] MEDS: ELIQUIS 2.5 MG PO ×2 (07:52→20:40)
[2024-05-16] MEDS: NOVOLOG FLEXPEN-LOW RESISTANCE 1 UNITS SC ×2 (07:57→12:10)
[2024-05-16] MEDS: TAMIFLU 30 MG PO (08:23)
--- NOTE | 2024-05-16 10:26 | CM ---
Patient seen at bedside, no family present. will send updated clinicals to [facility] for pending return to SNF when medically appropriate.
Plan; return to SNF when medically appropriate.
[2024-05-16 10:57] LABS: % Basophils 0.3 % (0-2); % Immature Granulocytes 1.4 % (0-0.5); % Lymphocytes 7.2 % (20.5-51.1); % Monocytes 2.9 % (1.7-9.3); % Neutrophils 88.2 % (42.2-75.2); Absolute Immature Granulocytes 0.1 10^3/uL (0-0.05); Absolute Lymphocytes 0.6 10^3/uL (1.2-3.4); Absolute Monocytes 0.2 10^3/uL (0.1-0.6); Absolute Neutrophils 6.7 10^3/uL (1.4-6.5); Hematocrit 32.8 % (37.0-47.0); Hemoglobin 10.6 g/dL (12.0-16.0); Mean Corp Hgb Conc. 32.3 g/dL (33.0-37.0); Mean Corpuscular Hgb 30.4 pg (27.0-31.0); Mean Platelet Volume 11.4 fL (7.4-10.4); Nucleated Red Blood Cells % 0 %; Platelet Count 236 10^3/uL (130-400); Red Blood Cell Count 3.49 10^6/uL (4.20-5.40); Red Cell Dist. Width 16.7 % (11.5-14.5); White Blood Cell Count 7.6 10^3/uL (4.8-10.8)
[2024-05-16 11:08] LABS: Blood Urea Nitrogen 56 mg/dl (7-17); Carbon Dioxide 25 mmol/L (22-30); Chloride 120 mmol/L (98-107); Estimated Creatinine Clearance 22 ml/min; Glucose 177 mg/dl (70-99); Sodium 151 mmol/L (135-145); eGFR 48.03
[2024-05-16 11:45] LABS: Glucose - Point of Care 196 mg/dl (70-99)
[2024-05-16] MEDS: D5W 1000 IV (14:09)
--- NOTE | 2024-05-16 14:27 | W.PN.PUL3 ---
Today's Communication / Plan
-
Doing well today, remains stable on RA
CM consult for NIV set up at home: settings 350/14/5+ with 4L
Continue abx per ID
Transition IV steroids to PO course
PT/OT
Discharge planning per team, we will sign off at this time-pls call with questions
.....
Patient is a 89-year-old F with asthma, acute hypoxic respiratory failure, increased WOB. They have had multiple ER and hospital readmissions with a chief complaint of shortness of breath and respiratory failure. The patient reports they are on
oxygen continuously. The patient reports they get short of breath with minimal exertion. They also report diffuse joint pain and is very limited because of breathing issues. Due to the patient's comorbidities as noted above and hypoventilation,
the patient is at risk for worsening chronic respiratory failure. I have considered bilevel, bilevel ST and bilevel VAPS therapy and they have all been ruled out due to the patient's worsening clinical condition. The patient now requires a unique
mode of ventilation not offered on less costly options. The patient requires a device that will not fail in the event of a power failure and is also portable for mobility within the home when needed. Due to the patient's worsening condition, I am
prescribing NIV therapy to decrease the chance of continued unexplained expensive medical encounters including physician office visits, emergency/urgent care treatment and hospital readmissions.
Assessment
-
89-year-old patient with history of asthma presented to emergency room with respiratory distress. Noted to have influenza A along with pneumonia likely superimposed. Patient also quite bronchospastic.
Acute respiratory failure, hypoxic, with significant bronchospasm
Influenza A infection with multifocal pneumonia possibly superimposed bacterial/aspiration.
GPC Bacteremia
Hypotension-resolved
Acute encephalopathy, suspect primarily metabolic, improved
Minimally elevated troponin
Paroxysmal A-fib with RVR
Conditions present prior to admission:
Dementia
CVA with left-sided weakness
Hypertension
Hyperlipidemia
Dysphagia
History of MRSA colonization
Plan
Currently stable on RA
Kang noted post meal, daughter states she is already on pureed diet
Speech following
Quite improved, patient currently off BiPAP, wheezing significantly improved.
Lower steroids to once a day, continue DuoNebs, nightly BiPAP--can likely transition to PO steroids in AM if continues to improve
Suspect respiratory failure is related to influenza infection along with aspiration pneumonia and exacerbation of her underlying obstructive airway disease.
Continue DuoNeb 4 times daily scheduled
BIPAP continued, will arrange home NIV set up
CM consult placed
On vancomycin and cefepime. Follow-up on cultures.
Strep pyogenes on culture so far, await ID recommendations for further antibiotic adjustment
ID service on case
Tamiflu will be started once patient is safely able to take p.o.
Complete course
CVA history, PT/OT, speech to follow
Ongoing PO diet may be an issue
Aspiration precautions
Repeat CXR in AM--stable
Continue airway clearance measures
Mucinex QID
Discharge planning once cleared by ID for PO course
Diagnostic Data
Chest X-Ray: 05/13/24- There is new airspace disease involving the right upper and lower lobes consistent with pneumonia
02/14/22- Horizontal band of increased density within the right midlung, new from prior examination, with appearance compatible with discoid atelectasis. Subtle 8 mm nodular opacity projecting over the lateral aspect of the right upper lung, as
described. See above discussion. Subtle pleural density in the lateral aspect of the left lower hemithorax, perhaps pleural invagination from adjacent old rib fractures. Improvement in bilateral basilar atelectasis since most recent radiograph of
February 10, 2022. Cardiomegaly with no convincing evidence for pulmonary edema.
CT Scan:
Echo: 05/13/24- Left ventricular ejection fraction is 65-70%. Normal regional wall motion. -Normal right ventricular size and function. -Severely dilated left atrium. Severely dilated right atrium. -Mild to moderate mitral regurgitation. -Mild to
moderate aortic stenosis; peak/mean gradients 14/7 mmHg, calculated PAOLO 1.4 cm2. -Moderate tricuspid regurgitation. Estimated pulmonary artery pressure of 40-45 mmHg. -Small to medium-sized pericardial effusion without evidence of hemodynamic
compromise. Compared to previous echo on 02/13/2022, progressive biatrial enlargement is noted, slightly progressive tricuspid regurgitation, and a pericardial effusion are now noted.
PFT's:
Reports and relevant images were personally reviewed.
------
Total time spent on this consultation/encounter __45__ minutes which includes review of history, physical exam, medications, laboratory data, personal review of imaging, extensive review of outpatient records, discussion with care team and
respiratory therapy.
Subjective Data
-
Date of Service:
Date of Service: May 16, 2024
Chief Complaint: Pulmonary Follow Up
Subjective:
Doing well today, no events
Stable on RA, daughter at bedside
Objective Data
Data Reviewed
Vital Signs / I&O / Oxygen:
Vital Signs
Temp Pulse Resp BP Pulse Ox
97.7 F 79 24 107/74 96
05/16/24 11:42 05/16/24 11:42 05/16/24 11:42 05/16/24 11:42 05/16/24 11:42
Intake and Output
05/15/24 05/16/24 05/17/24
06:59 06:59 06:59
Intake Total 737.5 / 737.5
Output Total 350 / 350 50 / 50
Balance 387.5 / 387.5 -50 / -50
SaO2 96
Nasal Cannula flow liters per 1
minute
Physical Exam
General: Comfortable and Other (NAD)
HEENT: Normocephalic, Anicteric and Moist Mucous Membranes
Cardiovascular: S1-S2 and Regular Rhythm
Respiratory: Rhonchi (mild, mostly clear) and Non-Labored Respirations
GI: Soft, Non Distended and Non Tender
Neurology: Awake, Alert and Other (non Welsh speaking)
Skin: Warm and Dry
Labs/Micro/Reports
Lab Data
05/16/24 10:39
05/16/24 10:39
Microbiology
05/14/24 11:53 Blood/Venous Blood Culture - Preliminary
No Growth in 48 hours- Final report to follow
05/14/24 12:08 Blood/Venous Blood Culture - Preliminary
No Growth in 48 hours- Final report to follow
05/13/24 01:51 Blood/Venous Blood Culture - Final
Streptococcus pyogenes
05/13/24 01:51 Blood/Venous Gram Stain - Final
05/13/24 01:51 Blood/Venous Blood Culture - Preliminary
Streptococcus pyogenes
05/13/24 01:51 Blood/Venous Gram Stain - Preliminary
05/14/24 04:17 Nose Nasal Screen MRSA (PCR) - Final
MRSA not detected - performed by PCR methodology.
05/14/24 04:17 Urine Legionella Urinary Antigen - Final
Negative for Legionella pneumophila Serogroup 1 antigen.
A negative result does not rule out the possiblity of
Legionella infection due to other serogroups or species of
Legionella. Clinical correlation is recommended.
05/14/24 04:17 Urine Streptococcus pneumoniae Antigen (M - Final
Negative for Streptococcus pneumoniae antigen.
A negative result does not exclude infection with
Streptococcus pneumoniae. Clinical correlation is
recommended.
--- NOTE | 2024-05-16 14:42 | W.PN.ID1 ---
Date of Service
Date of Service: May 16, 2024
Today's Communication
- Continue Oseltamivir 30mg po qd (d3 of 5)
-Continue ceftriaxone (d5 abx) - at time of discharge, transition to cefuroxime 500mg po qd through 05/25.
Assessment / Plan
# Influenza A infection
# Superimposed right sided PNA - group A strep
# Group A strep bacteremia - lung source, risk for co-infection with Influenza
# Acute hypoxemic respiratory failure - resolved
# s/p Septic shock
# Fever - resolved
# Leukocytosis resolved
# Decreased mental status - resolved
# hx MRSA colonization
-Repeat blood cx's neg
- Continue Oseltamivir 30mg po qd (d3 of 5)
-Continue ceftriaxone (d5 abx) - at time of discharge, transition to cefuroxime 500mg po qd through 05/25.
# Conditions prior to admission
Diabetes mellitus
Dementia
CVA with left-sided weakness and dysphagia
Asthma
Atrial fibrillation on Eliquis
Hypertension
GERD
Bilateral total knee replacements
SNF resident
Chief Complaint
-: Bacteremia
Vital Signs / Physical Exam
Vital Signs
Vital Signs
Temp Pulse Resp BP Pulse Ox
97.7 F 79 24 107/74 96
05/16/24 11:42 05/16/24 11:42 05/16/24 11:42 05/16/24 11:42 05/16/24 11:42
Physical Exam
Constitutional: Comfortable
Eyes: No Conjunctival Hemorrhage and Sclera Anicteric
Cardiovascular: Regular Rate and S1/S2
Pulmonary: Rales (crackles )
Gastrointestinal: Soft, Non Tender, Non Distended and Normal Bowel Sounds
Genito-Urinary: Negative CVA Tenderness
Extremities: Negative Edema
Neurological: Awake and Alert; Negative Meningeal Signs
Objective Data
Lab Data
Lab Results
05/16/24 10:39
05/16/24 10:39
PT 17.4 Sec (11.4-14.6) H 05/13/24 06:44
INR 1.40 05/13/24 06:44
APTT 38.6 Sec (23.4-35.0) H 05/13/24 06:44
Estimated Creat Clear 22 ml/min 05/16/24 10:39
Lactic Acid 1.6 mmol/L (0.7-2.0) 05/13/24 06:44
Total Bilirubin 1.8 mg/dl (0.2-1.3) H 05/13/24 01:49
AST 27 U/L (14-36) 05/13/24 01:49
ALT 25 U/L (0-35) 05/13/24 01:49
Alkaline Phosphatase 129 U/L (38-126) H 05/13/24 01:49
Most recent labs reviewed.
Micro Results:
05/14/24 11:53 Blood Culture - Preliminary
Blood/Venous No Growth in 48 hours- Final report to follow
05/14/24 12:08 Blood Culture - Preliminary
Blood/Venous No Growth in 48 hours- Final report to follow
05/13/24 01:51 Blood Culture - Final
Blood/Venous Streptococcus pyogenes
Gram Stain - Final
05/13/24 01:51 Blood Culture - Preliminary
Blood/Venous Streptococcus pyogenes
Gram Stain - Preliminary
05/14/24 04:17 Nasal Screen MRSA (PCR) - Final
Nose MRSA not detected - performed by PCR methodology.
05/14/24 04:17 Legionella Urinary Antigen - Final
Urine Negative for Legionella pneumophila Serogroup 1 antigen.
A negative result does not rule out the possiblity of
Legionella infection due to other serogroups or species of
Legionella. Clinical correlation is recommended.
Streptococcus pneumoniae Antigen (M - Final
Negative for Streptococcus pneumoniae antigen.
A negative result does not exclude infection with
Streptococcus pneumoniae. Clinical correlation is
recommended.
05/13/24 02:02 Influenza Types A & B (HERBIE) - Final
Nasal Swab Influenza A Positive, NAAT
05/13/24 CXR: There is new airspace disease involving the right upper and lower lobes consistent with pneumonia
05/13/[address]: No acute intracranial abnormalities appreciated. Old infarct suspected within the right temporoparietal lobe. Partial obscuration of the left mastoid air cells. Please correlate for symptoms of mastoiditis.
--- NOTE | 2024-05-16 15:59 | W.PN.HOSP.TC ---
Today's Communication/Plan
-
Monitor oral intake
Free water repletion with IV fluids.
Follow BMP
IV antibiotics with plan to transition to oral to complete course of therapy upon discharge.
Tamiflu.
Assessment / Plan
Assessment / Plan
Impression:
Acute hypoxic/hypercarbic respiratory failure
Severe influenza A infection
Right sided multifocal pneumonia suspected superimposed on influenza, also with reasonable aspiration risk in patient with CVA
Gram-positive bacteremia suspect streptococcal
Sepsis with septic shock requiring vasopressors
Toxic metabolic encephalopathy secondary to above.
Type II NC.
Elevated pro CHF BNP
MRSA colonization
Other conditions:
Status post CVA with left hemiparesis. Bedbound. group home resident.
Chronic atrial fibrillation baseline anticoagulation with Eliquis
Hypertension
Dyslipidemia
History of PEG tube. Currently on modified diet with aspiration precautions
Plan:
Acute hypoxic respiratory failure. Some degree of relative hypercarbia in the settings of severe influenza A/bacterial pneumonia.
Improved with decreased oxygen requirements
Continue BiPAP at night
Sepsis with septic shock and hypotension secondary to influenza A/bacterial pneumonia.
Strep pyogenous bacteremia
Influenza A bronchitis with bronchospasm
Continue Tamiflu.
Antibiotic consolidated to ceftriaxone
Weaned off IV steroids
Dehydration with hypernatremia
Monitor oral intake
Start D5 water
Follow BMP
Chronic atrial fibrillation.
A-fib with RVR on presentation. Currently rate controlled
Not on any rate control medications prior to admission
Continue telemetry monitoring.
Rate better controlled with introduction of Cardizem. Transition to long-acting Cardizem in a.m.
Toxic metabolic encephalopathy secondary to sepsis.
Improved with mental status back to baseline
Type II NC. Flat troponins.
ECG with no ischemia
Echocardiogram 3/: LVEF 65-70%. Normal regional wall motion. Normal RV size and function. Mild to moderate aortic stenosis PAOLO 1.4 cm�. Moderate TR. Pulmonary artery pressure 40 to 45 mmHg. Small to medium sized pericardial effusion without
evidence of hemodynamic compromise.
Monitor volume status closely.
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
History of CVA with left hemiparesis. Functional quadriplegia.
Bedbound/wheelchair-bound snf resident
Continue supportive care
Continue donepezil when able to take p.o.
Goals of care discussion with patient's daughter at the bedside.
Full code.
DVT prophylaxis mechanical/Eliquis
Anticipated Discharge: 24 - 48 hours
Subjective/Interval History
-
Date of Service: May 16, 2024
Objective Data
-
Labs:
Laboratory Results
05/16/24
10:39
WBC 7.6
Hgb 10.6 L
Hct 32.8 L
Plt Count 236
Sodium 151 H
Potassium 4.0
Chloride 120 H
Carbon Dioxide 25
BUN 56 H
Creatinine 1.1 H
Glucose 177 H
Calcium 9.0
Vital Signs:
Vital Signs
Temp Pulse Resp BP Pulse Ox
98.5 F 82 16 121/76 93
05/16/24 15:55 05/16/24 15:09 05/16/24 15:09 05/16/24 14:53 05/16/24 15:09
I&O
05/15/24 05/16/24 05/17/24
06:59 06:59 06:59
Intake Total 737.5 / 737.5
Output Total 350 / 350 50 / 50
Balance 387.5 / 387.5 -50 / -50
Physical Exam
-
General: Well Developed and No Apparent Distress
HEENT: Normocephalic, Atraumatic and Moist Mucous Membranes
Respiratory: Clear to Auscultation
Cardiac: Regular Rhythm and S1/S2; Negative Murmur, Rub or Gallop
GI: Soft, Nontender, Nondistended and Normal Bowel Sounds; Negative Organomegaly
Rectal: Deferred by Provider
Musculoskeletal: No Clubbing, No Cyanosis and No Edema
Skin: Negative Rash
Neuro: Awake, Alert and Other (Left hemiparesis)
[2024-05-16] MEDS: STERILE WATER FOR INJECTION 20 ML IV (16:11)
[2024-05-16] MEDS: ROCEPHIN 2000 MG IV (16:11)
[2024-05-16 16:29] LABS: Glucose - Point of Care 266 mg/dl (70-99)
--- NOTE | 2024-05-16 16:31 | PTCARENOTE ---
took over pt care at 11am. Daughter at bedside. Updated on care. pt denies pain. call wu in reach
[2024-05-16] MEDS: NOVOLOG FLEXPEN-LOW RESISTANCE 3 UNITS SC (17:06)
[2024-05-16] MEDS: ARICEPT 5 MG PO (20:41)
[2024-05-16] MEDS: REMERON 15 MG PO (20:43)
[2024-05-16 21:20] LABS: Glucose - Point of Care 218 mg/dl (70-99)
[2024-05-17] VITALS (8 sets, daily range): BP systolic 104–130; BP diastolic 61–91; PULSE 2–61; BMI 23.4
[2024-05-17] MEDS: D5W 1000 IV ×2 (01:35→14:47)
--- NOTE | 2024-05-17 04:00 | PTCARENOTE ---
Pt. had a 9 beat run VT at 0059; otherwise A-fib on the monitor sleeping at the time, VSS. Hospitalist CHARLES Jo notified, mag level added to AM labs, drawn and sent .
[2024-05-17 04:14] LABS: % Basophils 0.1 % (0-2); % Lymphocytes 7.3 % (20.5-51.1); % Monocytes 3.1 % (1.7-9.3); % Neutrophils 86.5 % (42.2-75.2); Absolute Immature Granulocytes 0.2 10^3/uL (0-0.05); Absolute Lymphocytes 0.5 10^3/uL (1.2-3.4); Absolute Monocytes 0.2 10^3/uL (0.1-0.6); Absolute Neutrophils 6.4 10^3/uL (1.4-6.5); Hematocrit 32.7 % (37.0-47.0); Hemoglobin 10.2 g/dL (12.0-16.0); Mean Corp Hgb Conc. 31.2 g/dL (33.0-37.0); Mean Corpuscular Volume 96.2 fL (81.0-99.0); Mean Platelet Volume 11.3 fL (7.4-10.4); Nucleated Red Blood Cells % 0 %; Platelet Count 234 10^3/uL (130-400); Red Cell Dist. Width 16.1 % (11.5-14.5); White Blood Cell Count 7.4 10^3/uL (4.8-10.8)
[2024-05-17 04:45] LABS: Blood Urea Nitrogen 51 mg/dl (7-17); Calcium 8.8 mg/dl (8.4-10.2); Carbon Dioxide 23 mmol/L (22-30); Chloride 114 mmol/L (98-107); Estimated Creatinine Clearance 27 ml/min; Glucose 240 mg/dl (70-99); Magnesium 2.5 mg/dl (1.6-2.3); Potassium 4.1 mmol/L (3.5-5.1); Sodium 147 mmol/L (135-145); eGFR > 60.00
[2024-05-17] MEDS: DUONEB 3 ML INH ×4 (07:19→19:17)
[2024-05-17] MEDS: PULMICORT 0.5 MG INH ×2 (07:19→19:17)
[2024-05-17 08:03] LABS: Glucose - Point of Care 209 mg/dl (70-99)
[2024-05-17] MEDS: NOVOLOG FLEXPEN-LOW RESISTANCE 2 UNITS SC ×2 (10:33→12:58)
[2024-05-17] MEDS: ELIQUIS 2.5 MG PO ×2 (10:33→21:00)
[2024-05-17] MEDS: ROBITUSSIN 100 MG PO ×4 (10:34→21:01)
[2024-05-17] MEDS: TAMIFLU 30 MG PO (10:40)
--- NOTE | 2024-05-17 11:03 | W.PN.HOSP.TC ---
Today's Communication/Plan
-
cont Abx
cont IVF
Assessment / Plan
Assessment / Plan
Impression:
Acute hypoxic/hypercarbic respiratory failure
Severe influenza A infection
Right sided multifocal pneumonia suspected superimposed on influenza, also with reasonable aspiration risk in patient with CVA
Gram-positive bacteremia suspect streptococcal
Sepsis with septic shock requiring vasopressors
Toxic metabolic encephalopathy secondary to above.
Type II SC.
Elevated pro CHF BNP
MRSA colonization
Other conditions:
Status post CVA with left hemiparesis. Bedbound. senior living resident.
Chronic atrial fibrillation baseline anticoagulation with Eliquis
Hypertension
Dyslipidemia
History of PEG tube. Currently on modified diet with aspiration precautions
Plan:
Acute hypoxic respiratory failure. Some degree of relative hypercarbia in the settings of severe influenza A/bacterial pneumonia.
Improved with decreased oxygen requirements
Continue BiPAP at night
Sepsis with septic shock and hypotension secondary to influenza A/bacterial pneumonia.
Strep pyogenous bacteremia
Influenza A bronchitis with bronchospasm
Continue Tamiflu.
Antibiotic consolidated to ceftriaxone
Weaned off IV steroids
Dehydration with hypernatremia
Monitor oral intake
Start D5 water
Follow BMP
Chronic atrial fibrillation.
A-fib with RVR on presentation. Currently rate controlled
Not on any rate control medications prior to admission
Continue telemetry monitoring.
Rate better controlled with introduction of Cardizem. Transition to long-acting Cardizem in a.m.
Toxic metabolic encephalopathy secondary to sepsis.
Improved with mental status back to baseline
Type II SC. Flat troponins.
ECG with no ischemia
Echocardiogram 05/13: LVEF 65-70%. Normal regional wall motion. Normal RV size and function. Mild to moderate aortic stenosis PAOLO 1.4 cm�. Moderate TR. Pulmonary artery pressure 40 to 45 mmHg. Small to medium sized pericardial effusion without
evidence of hemodynamic compromise.
Monitor volume status closely.
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
History of CVA with left hemiparesis. Functional quadriplegia.
Bedbound/wheelchair-bound [facility] resident
Continue supportive care
Continue donepezil when able to take p.o.
Full code.
DVT prophylaxis mechanical/Eliquis
Anticipated Discharge: 24 - 48 hours
Subjective/Interval History
-
Date of Service: May 17, 2024
Objective Data
-
Labs:
Laboratory Results
05/17/24
03:47
WBC 7.4
Hgb 10.2 L
Hct 32.7 L
Plt Count 234
Sodium 147 H
Potassium 4.1
Chloride 114 H
Carbon Dioxide 23
BUN 51 H
Creatinine 0.9
Glucose 240 H
Calcium 8.8
Vital Signs:
Vital Signs
Temp Pulse Resp BP Pulse Ox
97.0 F 87 18 130/91 94
05/17/24 07:35 05/17/24 07:35 05/17/24 07:35 05/17/24 07:35 05/17/24 07:22
I&O
05/16/24 05/17/24 05/18/24
06:59 06:59 07:59
Intake Total 1340 / 1340
Output Total 50 / 50
Balance -50 / -50 1340 / 1340
Physical Exam
-
General: No Apparent Distress
HEENT: Normocephalic
Respiratory: Clear to Auscultation
GI: Soft, Nontender and Nondistended
Neuro: Awake, Alert and Oriented
Psych: Calm
--- NOTE | 2024-05-17 11:53 | W.PN.ID1 ---
Date of Service
Date of Service: May 17, 2024
Today's Communication
Continue oseltamivir and ceftriaxone.
Assessment / Plan
# Influenza A infection
# Superimposed right sided PNA - group A strep
# Group A strep bacteremia - lung source, risk for co-infection with Influenza
# Acute hypoxemic respiratory failure - resolved
# s/p Septic shock
# Fever - resolved
# Leukocytosis resolved
# Decreased mental status - resolved
# hx MRSA colonization
-Repeat blood cx's neg
- Continue Oseltamivir 30mg po qd (d4 of 5)
-Continue ceftriaxone (d6 abx) - at time of discharge, transition to cefuroxime 500mg po qd through 05/25.
# Conditions prior to admission
Diabetes mellitus
Dementia
CVA with left-sided weakness and dysphagia
Asthma
Atrial fibrillation on Eliquis
Hypertension
GERD
Bilateral total knee replacements
SNF resident
Chief Complaint
-: Bacteremia
Vital Signs / Physical Exam
Vital Signs
Vital Signs
Temp Pulse Resp BP Pulse Ox
97.0 F 82 16 130/91 94
05/17/24 07:35 05/17/24 11:17 05/17/24 11:17 05/17/24 07:35 05/17/24 11:17
Physical Exam
Constitutional: Comfortable
Cardiovascular: Regular Rate and S1/S2
Pulmonary: Rales (crackles )
Gastrointestinal: Soft, Non Tender, Non Distended and Normal Bowel Sounds
Genito-Urinary: Negative CVA Tenderness
Extremities: Negative Edema
Neurological: Awake and Alert; Negative Meningeal Signs
Objective Data
Lab Data
Lab Results
05/17/24 03:47
05/17/24 03:47
PT 17.4 Sec (11.4-14.6) H 05/13/24 06:44
INR 1.40 05/13/24 06:44
APTT 38.6 Sec (23.4-35.0) H 05/13/24 06:44
Estimated Creat Clear 27 ml/min 05/17/24 03:47
Lactic Acid 1.6 mmol/L (0.7-2.0) 05/13/24 06:44
Total Bilirubin 1.8 mg/dl (0.2-1.3) H 05/13/24 01:49
AST 27 U/L (14-36) 05/13/24 01:49
ALT 25 U/L (0-35) 05/13/24 01:49
Alkaline Phosphatase 129 U/L (38-126) H 05/13/24 01:49
Most recent labs reviewed.
Micro Results:
05/14/24 11:53 Blood Culture - Preliminary
Blood/Venous No Growth in 48 hours- Final report to follow
05/14/24 12:08 Blood Culture - Preliminary
Blood/Venous No Growth in 48 hours- Final report to follow
05/13/24 01:51 Blood Culture - Final
Blood/Venous Streptococcus pyogenes
Gram Stain - Final
05/13/24 01:51 Blood Culture - Preliminary
Blood/Venous Streptococcus pyogenes
Gram Stain - Preliminary
05/14/24 04:17 Nasal Screen MRSA (PCR) - Final
Nose MRSA not detected - performed by PCR methodology.
05/14/24 04:17 Legionella Urinary Antigen - Final
Urine Negative for Legionella pneumophila Serogroup 1 antigen.
A negative result does not rule out the possiblity of
Legionella infection due to other serogroups or species of
Legionella. Clinical correlation is recommended.
Streptococcus pneumoniae Antigen (M - Final
Negative for Streptococcus pneumoniae antigen.
A negative result does not exclude infection with
Streptococcus pneumoniae. Clinical correlation is
recommended.
05/13/24 02:02 Influenza Types A & B (HERBIE) - Final
Nasal Swab Influenza A Positive, NAAT
05/13/24 CXR: There is new airspace disease involving the right upper and lower lobes consistent with pneumonia
05/13/[address]: No acute intracranial abnormalities appreciated. Old infarct suspected within the right temporoparietal lobe. Partial obscuration of the left mastoid air cells. Please correlate for symptoms of mastoiditis.
[2024-05-17] MEDS: CARDIZEM CD PO (12:07)
[2024-05-17] MEDS: CARDIZEM 60 MG PO ×2 (12:17→16:49)
[2024-05-17 12:56] LABS: Glucose - Point of Care 240 mg/dl (70-99)
[2024-05-17] MEDS: STERILE WATER FOR INJECTION 20 ML IV (16:51)
[2024-05-17] MEDS: ROCEPHIN 2000 MG IV (16:52)
[2024-05-17] MEDS: FLUSH (NSS) 2 FLUSH IV (16:57)
[2024-05-17 17:27] LABS: Glucose - Point of Care 166 mg/dl (70-99)
[2024-05-17] MEDS: NOVOLOG FLEXPEN-LOW RESISTANCE 1 UNITS SC (17:34)
[2024-05-17] MEDS: ARICEPT 5 MG PO (21:00)
[2024-05-17] MEDS: REMERON 15 MG PO (21:00)
[2024-05-17 21:55] LABS: Glucose - Point of Care 220 mg/dl (70-99)
[2024-05-18] VITALS (8 sets, daily range): BP systolic 104–149; BP diastolic 64–96; PULSE 2–60
[2024-05-18] MEDS: CARDIZEM 60 MG PO (00:17)
[2024-05-18] MEDS: D5W 1000 IV (05:07)
[2024-05-18 05:51] LABS: Blood Urea Nitrogen 40 mg/dl (7-17); Calcium 8.4 mg/dl (8.4-10.2); Carbon Dioxide 24 mmol/L (22-30); Chloride 109 mmol/L (98-107); Estimated Creatinine Clearance 31 ml/min; Glucose 182 mg/dl (70-99); Potassium 4.2 mmol/L (3.5-5.1); Sodium 137 mmol/L (135-145); eGFR > 60.00
[2024-05-18] MEDS: PULMICORT 0.5 MG INH (07:32)
[2024-05-18] MEDS: DUONEB 3 ML INH ×4 (07:32→20:32)
[2024-05-18 08:10] LABS: Glucose - Point of Care 139 mg/dl (70-99)
[2024-05-18] MEDS: NOVOLOG FLEXPEN-LOW RESISTANCE SC ×3 (08:18→17:12)
[2024-05-18] MEDS: CARDIZEM PO (08:56)
[2024-05-18] MEDS: ELIQUIS 2.5 MG PO ×2 (08:58→21:00)
[2024-05-18] MEDS: ROBITUSSIN 100 MG PO ×4 (08:59→21:02)
[2024-05-18] MEDS: TAMIFLU 30 MG PO (09:01)
--- NOTE | 2024-05-18 09:56 | W.PN.HOSP.TC ---
Today's Communication/Plan
-
pending DC
Assessment / Plan
Assessment / Plan
89yo F with PMHx of HFmrEF, moderate MR and , pulmonary HTN, dysphagia, CVA with residual L side weakness, HLD, HTN admitted with hypoxia, found Influenza A and completed Tamiflu for it, also pneumonia with GroupA strep bacteremia, evaluated by ID
and recommneded Rocephin inpatient with eventual switch to cefuroxime until 05/25/24. Repeated Bcx neg for >72h, leukocytosis resolved, patient off supplemental O2, LABEL PRESS OPERATOR recommended puree with thin liquids (via straws) with 1:1 supervision and
assistance with aspiration precautions. Pulmonary evaluated and recommended nighttime BiPAP, that later will be arranged in SNF. Hyponatremia resolved on D5W. Medcially stable for D/C as agreed with daughter over the phone. Aricept stopped and
Cardizem decreased 2/2 overnight carlos in low 40th BPM.
A/P:
#Acute hypoxic respiratory failure 2/2 severe influenza A/bacterial pneumonia with septic shock on admission complicated by Strep pyogenous bacteremia
Some degree of relative hypercarbia in the settings of .
Improved with decreased oxygen requirements
Continue BiPAP at night
Influenza A bronchitis with bronchospasm
Continue Tamiflu.
Antibiotic consolidated to ceftriaxone
Weaned off IV steroids
#Dehydration with hypernatremia
Monitor oral intake
Start D5 water
Follow BMP
#Chronic atrial fibrillation with A-fib with RVR on presentation
#Bradycardia
stop Aricept
Decreased cardizem
Continue telemetry monitoring
#Toxic metabolic encephalopathy secondary to sepsis with dementia, unspecified
Improved with mental status back to baseline
Donepezil stopped d2/2 bradycardia
#Type II [place]
#moderate MR
#Moderate
#Chronic HFmrEF
#Pulmonary HTN
Flat troponins.
ECG with no ischemia
Echocardiogram /: LVEF 65-70%. Normal regional wall motion. Normal RV size and function. Mild to moderate aortic stenosis PAOLO 1.4 cm�. Moderate TR. Pulmonary artery pressure 40 to 45 mmHg. Small to medium sized pericardial effusion without
evidence of hemodynamic compromise.
Monitor volume status closely.
Not on diuretics ACCOUNTS EXECUTIVE
#Dysphagia
Puree with thin liquids as per LABEL PRESS OPERATOR
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
wheelchair bound, using jorge lift at [facility], no indication for PT/OT as it is baseline
Full code.
DVT prophylaxis Eliquis
I have spent at least 37min reviewing chart, test results, communitaction with family and providing direct patient care
Anticipated Discharge: Today
Subjective/Interval History
-
Date of Service: May 18, 2024
Objective Data
-
Labs:
Laboratory Results
05/18/24
04:52
Sodium 137 D
Potassium 4.2
Chloride 109 H
Carbon Dioxide 24
BUN 40 H
Creatinine 0.8
Glucose 182 H
Calcium 8.4
Vital Signs:
Vital Signs
Temp Pulse Resp BP Pulse Ox
97.4 F 53 16 129/89 94
05/18/24 07:05 05/18/24 08:56 05/18/24 07:33 05/18/24 07:05 05/18/24 07:33
I&O
05/17/24 05/18/24 05/19/24
05:59 06:59 06:59
Intake Total
Balance
Review of Systems
-
History Source: Patient
All other systems: Reviewed and negative
Physical Exam
-
General: No Apparent Distress and Comfortable
Respiratory: Clear to Auscultation
Cardiac: Regular Rhythm
GI: Soft
Musculoskeletal: No Clubbing, No Cyanosis and No Edema
Neuro: Awake, Alert and Oriented
Psych: Calm
--- NOTE | 2024-05-18 10:08 | W.PN.ID1 ---
Date of Service
Date of Service: May 18, 2024
Today's Communication
Last day of Oseltamivir
Continue ceftriaxone for now.
Assessment / Plan
# Influenza A infection
# Superimposed r PNA - group A strep
# Group A strep bacteremia - lung source, risk for co-infection with Influenza
# Acute hypoxemic respiratory failure - resolved
# s/p Septic shock
# Fever - resolved
# Leukocytosis resolved
# Decreased mental status - resolved
# hx MRSA colonization
- Continue Oseltamivir 30mg po qd (d5 of 5)
-Continue ceftriaxone (d7 abx) - at time of discharge, transition to cefuroxime 500mg po qd through 05/25.
# Conditions prior to admission
Diabetes mellitus
Dementia
CVA with left-sided weakness and dysphagia
Asthma
Atrial fibrillation on Eliquis
Hypertension
GERD
Bilateral total knee replacements
SNF resident
Chief Complaint
-: Bacteremia
Subjective / Review of Systems
Awake and alert.
Vital Signs / Physical Exam
Vital Signs
Vital Signs
Temp Pulse Resp BP Pulse Ox
97.4 F 53 16 129/89 94
05/18/24 07:05 05/18/24 08:56 05/18/24 07:33 05/18/24 07:05 05/18/24 07:33
Physical Exam
Constitutional: No Acute Distress and Comfortable
Cardiovascular: Regular Rate and S1/S2
Pulmonary: Coarse (bases)
Gastrointestinal: Soft, Non Tender, Non Distended and Normal Bowel Sounds
Genito-Urinary: Negative CVA Tenderness
Extremities: Negative Edema
Neurological: Awake and Alert
Objective Data
Lab Data
Lab Results
05/17/24 03:47
05/18/24 04:52
PT 17.4 Sec (11.4-14.6) H 05/13/24 06:44
INR 1.40 05/13/24 06:44
APTT 38.6 Sec (23.4-35.0) H 05/13/24 06:44
Estimated Creat Clear 31 ml/min 05/18/24 04:52
Lactic Acid 1.6 mmol/L (0.7-2.0) 05/13/24 06:44
Total Bilirubin 1.8 mg/dl (0.2-1.3) H 05/13/24 01:49
AST 27 U/L (14-36) 05/13/24 01:49
ALT 25 U/L (0-35) 05/13/24 01:49
Alkaline Phosphatase 129 U/L (38-126) H 05/13/24 01:49
Most recent labs reviewed.
Micro Results:
05/14/24 11:53 Blood Culture - Preliminary
Blood/Venous No Growth in 72 hours- Final report to follow
05/14/24 12:08 Blood Culture - Preliminary
Blood/Venous No Growth in 72 hours- Final report to follow
05/13/24 01:51 Blood Culture - Final
Blood/Venous Streptococcus pyogenes
Gram Stain - Final
05/13/24 01:51 Blood Culture - Preliminary
Blood/Venous Streptococcus pyogenes
Gram Stain - Preliminary
05/14/24 04:17 Nasal Screen MRSA (PCR) - Final
Nose MRSA not detected - performed by PCR methodology.
05/14/24 04:17 Legionella Urinary Antigen - Final
Urine Negative for Legionella pneumophila Serogroup 1 antigen.
A negative result does not rule out the possiblity of
Legionella infection due to other serogroups or species of
Legionella. Clinical correlation is recommended.
Streptococcus pneumoniae Antigen (M - Final
Negative for Streptococcus pneumoniae antigen.
A negative result does not exclude infection with
Streptococcus pneumoniae. Clinical correlation is
recommended.
05/13/24 02:02 Influenza Types A & B (HERBIE) - Final
Nasal Swab Influenza A Positive, NAAT
05/13/24 CXR: There is new airspace disease involving the right upper and lower lobes consistent with pneumonia
05/13/[address]: No acute intracranial abnormalities appreciated. Old infarct suspected within the right temporoparietal lobe. Partial obscuration of the left mastoid air cells. Please correlate for symptoms of mastoiditis.
--- NOTE | 2024-05-18 10:08 | W.DCSUMMARY ---
Discharge Summary
Discharge Data
Date of Admission: 05/13/24
Date of Discharge: 05/18/24
-
Pending Results: No
Hospital Course
89yo F with PMHx of HFmrEF, moderate MR and , pulmonary HTN, dysphagia, CVA with residual L side weakness, HLD, HTN admitted with hypoxia, found Influenza A and completed Tamiflu for it, also pneumonia with GroupA strep bacteremia, evaluated by ID
and recommended Rocephin inpatient with eventual switch to cefuroxime until 05/25/24. Repeated Bcx neg for >72h, leukocytosis resolved, patient off supplemental O2, POLY AREA SUPERVISOR recommended puree with thin liquids (via straws) with 1:1 supervision and
assistance with aspiration precautions. Pulmonary evaluated and recommended nighttime BiPAP, that later will be arranged in SNF. Hyponatremia resolved on D5W. Medcially stable for D/C as agreed with daughter over the phone. Aricept stopped and
Cardizem decreased 2/2 overnight carlos in low 40th BPM.
I have spent at least 37min reviewing chart, test results, communication with family and providing direct patient care
Patient was managed for:
#Acute hypoxic respiratory failure 2/2 severe influenza A/bacterial pneumonia with septic shock on admission complicated by Strep pyogenous bacteremia
#Dehydration with hypernatremia
#Chronic atrial fibrillation with A-fib with RVR on presentation
#Bradycardia
#Toxic metabolic encephalopathy secondary to sepsis with dementia, unspecified
#Type II [place]
#moderate MR
#Moderate
#Chronic HFmrEF
#Pulmonary HTN
#Dysphagia
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
Discharge Plan
-
Patient Disposition: [facility]/SNF
Discharge Diagnosis/Procedures: pneumonia
Diet: Other diet
Additional Diets: Puree with thin liquids
Activity: As tolerated
Referrals:
Garrick Sanchez DO [Family Provider] -
Alexandra Medrano DO [Active] - in four to six weeks (NIV set up, sleep FU)
Additional Discharge Medication Instructions: Continue BiPAP 10/5 nightly
Prescriptions:
New
atorvastatin 40 mg tablet
40 mg PO DAILY Qty: 30 0RF
diltiazem HCl 30 mg Tablet
30 mg PO TID Qty: 90 0RF
cefuroxime axetil 500 mg tablet
500 mg PO Q12H Qty: 14 0RF
Continued
bisacodyl [Dulcolax (bisacodyl)] 10 mg Suppository
10 mg [place] DAILY PRN (Reason: if mom ineffective)
ipratropium-albuterol 0.5 mg-3 mg(2.5 mg base)/3 mL Solution For Nebulization
3 ml INHALATION R Q6HPRN PRN (Reason: wheezing SOB)
melatonin 3 mg Tablet
3 mg PO HS PRN (Reason: insomnia)
zinc oxide 30.6 % Cream
1 applic TOPICAL TID
acetaminophen 325 mg Tablet
650 mg PO Q6H PRN (Reason: mild pain, T>100F )
polyethylene glycol 3350 [Miralax] 17 gram Powder In Packet
17 g PO DAILY PRN (Reason: constipation)
guaifenesin 100 mg/5 mL Liquid
100 mg PO Q6H PRN (Reason: cough)
Fleet Enema 19-7 gram/118 mL Enema
118 ml [place] ONCE PRN (Reason: if dulcolax ineffective)
formoterol fumarate 20 mcg/2 mL Solution For Nebulization
2 ml INHALATION R BID
Eliquis 2.5 mg Tablet
2.5 mg PO BID
albuterol sulfate 2.5 mg /3 mL (0.083 %) Solution For Nebulization
2.5 mg inhalation R QID Qty: 0 0RF
budesonide 0.5 mg/2 mL Suspension For Nebulization
0.5 mg inhalation R BID Qty: 0 0RF
ferrous sulfate 325 mg (65 mg iron) Tablet
325 mg PO DAILY
mirtazapine [Remeron] 15 mg Tablet
15 mg PO HS
oxymetazoline [Afrin (oxymetazoline)] 0.05 % [place],Non-Aerosol
2 spray INTRANASAL Q12H PRN (Reason: dryness/epitaxis)
Discontinued
atorvastatin 80 mg Tablet
80 mg PO HS
donepezil 5 mg Tablet
5 mg PO HS
tamsulosin 0.4 mg Capsule
0.4 mg PO DAILY@1730
therapeutic multivitamin Tablet
1 tab FEEDING TUBE DAILY
magnesium hydroxide [Milk of Magnesia] 400 mg/5 mL Suspension
30 ml PO DAILY PRN (Reason: if no bm x 3 days)
albuterol sulfate 2.5 mg /3 mL (0.083 %) Solution For Nebulization
2.5 mg inhalation R Q4HPRN PRN (Reason: SOB/cough) Qty: 0 0RF
prednisone 10 mg Tablet
10 mg PO DAILY
Rx Instructions:
Start 05/16/2024
End 05/19/2024
prednisone 10 mg Tablet
20 mg PO DAILY
Rx Instructions:
Start 05/13/2024
End 05/16/2024
Discharge Orders:
Discharge Patient (As Directed); Ordered 05/18/24
Ordered By: Jaun Sandoval
Discharge Date and Time
Print Language: CHINESE
[2024-05-18 11:55] LABS: Glucose - Point of Care 130 mg/dl (70-99)
--- NOTE | 2024-05-18 14:47 | CM ---
Addendum entered by PEPE Pope 05/18/24 14:55:
Attending updated.
Original Note:
Received notification from attending that patient is medically cleared for discharge. Placed a call to Brittnee in admissions at [facility] who stated that patient would still need an isolation room and therefore they won't be able to take her until
tomorrow at the earliest as they need the room to accommodate her.
Plan: Case management will continue to follow and assist with discharge planning. SNF when bed is available at [facility].
[2024-05-18] MEDS: D5W IV (16:45)
[2024-05-18] MEDS: CARDIZEM 30 MG PO ×2 (16:50→21:01)
[2024-05-18] MEDS: ROCEPHIN 2000 MG IV (16:50)
[2024-05-18] MEDS: STERILE WATER FOR INJECTION 20 ML IV (16:50)
[2024-05-18 17:10] LABS: Glucose - Point of Care 130 mg/dl (70-99)
[2024-05-18] MEDS: REMERON 15 MG PO (21:01)
[2024-05-18 21:56] LABS: Glucose - Point of Care 79 mg/dl (70-99)
[2024-05-19 03:24] VITALS: BP 135/85
[2024-05-19 06:00] VITALS: BMI 23.5
[2024-05-19 07:39] VITALS: BP 125/87
[2024-05-19] MEDS: DUONEB 3 ML INH ×2 (07:39→11:25)
[2024-05-19 07:59] LABS: Glucose - Point of Care 66 mg/dl (70-99)
[2024-05-19] MEDS: NOVOLOG FLEXPEN-LOW RESISTANCE SC ×2 (08:04→12:13)
[2024-05-19] MEDS: CARDIZEM 30 MG PO (08:18)
[2024-05-19] MEDS: ELIQUIS 2.5 MG PO (08:18)
[2024-05-19] MEDS: ROBITUSSIN 100 MG PO (08:19)
[2024-05-19 08:50] LABS: Glucose - Point of Care 84 mg/dl (70-99)
--- NOTE | 2024-05-19 11:08 | CM ---
CM reviewed chart, patient seen bedside with daughter, discussed plan for discharge back to [facility]. IMM reviewed with daughter, signed, placed in chart. Patient will require ambulance transport. Updated clinicals sent to [facility].
CM will continue to follow for all discharge planning needs.
Plan; return to [facility], ambulance transport
[facility]
Report: [phone]
[2024-05-19 11:58] LABS: Glucose - Point of Care 127 mg/dl (70-99)
[2024-05-19] MEDS: ROBITUSSIN PO (12:50)
--- NOTE | 2024-05-19 13:32 | W.PN.ID1 ---
Date of Service
Date of Service: May 19, 2024
Today's Communication
Transition to cefuroxime 500mg po qd through 05/25.
Assessment / Plan
# Influenza A infection
# Superimposed r PNA - group A strep
# Group A strep bacteremia - lung source, risk for co-infection with Influenza
# Acute hypoxemic respiratory failure - resolved
# s/p Septic shock
# Fever - resolved
# Leukocytosis resolved
# Decreased mental status - resolved
# hx MRSA colonization
- s/p 5 Oseltamivir 30mg po qd
- Transition ceftriaxone (d8 abx) to cefuroxime 500mg po qd through 05/25.
# Conditions prior to admission
Diabetes mellitus
Dementia
CVA with left-sided weakness and dysphagia
Asthma
Atrial fibrillation on Eliquis
Hypertension
GERD
Bilateral total knee replacements
SNF resident
Chief Complaint
-: Bacteremia
Subjective / Review of Systems
no complaints
Vital Signs / Physical Exam
Vital Signs
Vital Signs
Temp Pulse Resp BP Pulse Ox
97.4 F 71 17 125/87 95
05/19/24 07:39 05/19/24 11:29 05/19/24 11:29 05/19/24 07:39 05/19/24 11:29
Physical Exam
Constitutional: No Acute Distress, Comfortable and Chronically Ill
Cardiovascular: Regular Rate and S1/S2
Pulmonary: Clear (anteriorly)
Gastrointestinal: Soft, Non Tender, Non Distended and Normal Bowel Sounds
Extremities: Negative Edema
Neurological: Awake and Alert
Objective Data
Lab Data
Lab Results
05/17/24 03:47
05/18/24 04:52
PT 17.4 Sec (11.4-14.6) H 05/13/24 06:44
INR 1.40 05/13/24 06:44
APTT 38.6 Sec (23.4-35.0) H 05/13/24 06:44
Estimated Creat Clear 31 ml/min 05/18/24 04:52
Lactic Acid 1.6 mmol/L (0.7-2.0) 05/13/24 06:44
Total Bilirubin 1.8 mg/dl (0.2-1.3) H 05/13/24 01:49
AST 27 U/L (14-36) 05/13/24 01:49
ALT 25 U/L (0-35) 05/13/24 01:49
Alkaline Phosphatase 129 U/L (38-126) H 05/13/24 01:49
Most recent labs reviewed.
Micro Results:
05/14/24 11:53 Blood Culture - Final
Blood/Venous No Growth - Final Report
05/14/24 12:08 Blood Culture - Final
Blood/Venous No Growth - Final Report
05/13/24 01:51 Blood Culture - Final
Blood/Venous Streptococcus pyogenes
Gram Stain - Final
05/13/24 01:51 Blood Culture - Final
Blood/Venous Streptococcus pyogenes
Gram Stain - Final
05/14/24 04:17 Nasal Screen MRSA (PCR) - Final
Nose MRSA not detected - performed by PCR methodology.
05/14/24 04:17 Legionella Urinary Antigen - Final
Urine Negative for Legionella pneumophila Serogroup 1 antigen.
A negative result does not rule out the possiblity of
Legionella infection due to other serogroups or species of
Legionella. Clinical correlation is recommended.
Streptococcus pneumoniae Antigen (M - Final
Negative for Streptococcus pneumoniae antigen.
A negative result does not exclude infection with
Streptococcus pneumoniae. Clinical correlation is
recommended.
05/13/24 02:02 Influenza Types A & B (HERBIE) - Final
Nasal Swab Influenza A Positive, NAAT
05/13/24 CXR: There is new airspace disease involving the right upper and lower lobes consistent with pneumonia
05/13/[address]: No acute intracranial abnormalities appreciated. Old infarct suspected within the right temporoparietal lobe. Partial obscuration of the left mastoid air cells. Please correlate for symptoms of mastoiditis.
[2024-05-19 14:34] VITALS: BP 108/76
--- NOTE | 2024-05-19 16:12 | W.PN.HOSP.TC ---
Today's Communication/Plan
-
Transition to oral antibiotics.
Stable respiratory status.
Sufficient oral intake
Improved hypernatremia
Medically [facility].
Assessment / Plan
Assessment / Plan
89yo F with PMHx of HFmrEF, moderate MR and , pulmonary HTN, dysphagia, CVA with residual L side weakness, HLD, HTN admitted with hypoxia, found Influenza A and completed Tamiflu for it, also pneumonia with GroupA strep bacteremia, evaluated by ID
and recommneded Rocephin inpatient with eventual switch to cefuroxime until 05/25/24. Repeated Bcx neg for >72h, leukocytosis resolved, patient off supplemental O2, WOMEN'S APPAREL SALESPERSON recommended puree with thin liquids (via straws) with 1:1 supervision and
assistance with aspiration precautions. Pulmonary evaluated and recommended nighttime BiPAP, that later will be arranged in SNF. Hyponatremia resolved on D5W. Medcially stable for D/C as agreed with daughter over the phone. Aricept stopped and
Cardizem decreased 2/2 overnight carlos in low 40th BPM.
A/P:
#Acute hypoxic respiratory failure 2/2 severe influenza A/bacterial pneumonia with septic shock on admission complicated by Strep pyogenous bacteremia
Some degree of relative hypercarbia in the settings of .
Improved with decreased oxygen requirements
Continue BiPAP at night
Influenza A bronchitis with bronchospasm
Continue Tamiflu.
Antibiotic consolidated to ceftriaxone
Weaned off IV steroids
#Dehydration with hypernatremia
Monitor oral intake
Start D5 water
Follow BMP
#Chronic atrial fibrillation with A-fib with RVR on presentation
#Bradycardia
stop Aricept
Decreased cardizem
Continue telemetry monitoring
#Toxic metabolic encephalopathy secondary to sepsis with dementia, unspecified
Improved with mental status back to baseline
Donepezil stopped d2/2 bradycardia
#Type II [place]
#moderate MR
#Moderate
#Chronic HFmrEF
#Pulmonary HTN
Flat troponins.
ECG with no ischemia
Echocardiogram 3/4: LVEF 65-70%. Normal regional wall motion. Normal RV size and function. Mild to moderate aortic stenosis PAOLO 1.4 cm�. Moderate TR. Pulmonary artery pressure 40 to 45 mmHg. Small to medium sized pericardial effusion without
evidence of hemodynamic compromise.
Monitor volume status closely.
Not on diuretics LAND SURVEYOR
#Dysphagia
Puree with thin liquids as per WOMEN'S APPAREL SALESPERSON
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
wheelchair bound, using jorge lift at [facility], no indication for PT/OT as it is baseline
Full code.
DVT prophylaxis Eliquis
I have spent at least 37min reviewing chart, test results, communitaction with family and providing direct patient care
Anticipated Discharge: Today
Subjective/Interval History
-
Date of Service: May 19, 2024
Objective Data
-
Vital Signs:
Vital Signs
Temp Pulse Resp BP Pulse Ox
98.0 F 82 17 108/76 96
05/19/24 14:34 05/19/24 14:34 05/19/24 14:34 05/19/24 14:34 05/19/24 14:34
I&O
05/18/24 05/19/24 05/20/24
06:59 06:59 06:59
Intake Total 630 / 630
Balance 630 / 630
Physical Exam
-
General: No Apparent Distress and Comfortable
Respiratory: Clear to Auscultation
Cardiac: Regular Rhythm
GI: Soft
Musculoskeletal: No Clubbing, No Cyanosis and No Edema
Neuro: Awake, Alert and Oriented
Psych: Calm
== END 2024-05-19 15:00 | DRG 871 ==
LOC: 3 WEST ACU 05:08
PROVIDERS: Internal Medicine; Nurse Practitioner Primary Care; ADMITTING PHYSICIAN Internal Medicine; ATTENDING PHYSICIAN Internal Medicine; CONSULT PHYSICIAN Internal Medicine; CONSULT PHYSICIAN Internal Medicine Infectious Disease; EMERGENCY PHYSICIAN Emergency Medicine; FAMILY PHYSICIAN Student in an Organized Health Care Education/Training Program
PROC: 5A09357 Assistance with Respiratory Ventilation, Less than 24 Consecutive Hours, Continuous Positive Airway Pressure (ICD-10-PCS; 2024-05-13)
DX: A40.0 Sepsis due to streptococcus, group A (principal); G92.8 Other toxic encephalopathy; J10.08 Influenza due to other identified influenza virus with other specified pneumonia; J15.9 Unspecified bacterial pneumonia; J96.01 Acute respiratory failure with hypoxia; J69.0 Pneumonitis due to inhalation of food and vomit; R65.21 Severe sepsis with septic shock; I21.A1 Myocardial infarction type 2; I50.22 Chronic systolic (congestive) heart failure; E87.0 Hyperosmolality and hypernatremia; J45.901 Unspecified asthma with (acute) exacerbation; I48.20 Chronic atrial fibrillation, unspecified; I69.354 Hemiplegia and hemiparesis following cerebral infarction affecting left non-dominant side; R13.19 Other dysphagia; I48.0 Paroxysmal atrial fibrillation; K21.9 Gastro-esophageal reflux disease without esophagitis; I11.0 Hypertensive heart disease with heart failure; I95.9 Hypotension, unspecified; E11.9 Type 2 diabetes mellitus without complications; E78.00 Pure hypercholesterolemia, unspecified; E86.0 Dehydration; E87.6 Hypokalemia; I08.0 Rheumatic disorders of both mitral and aortic valves; I27.20 Pulmonary hypertension, unspecified; F03.90 Unspecified dementia, unspecified severity, without behavioral disturbance, psychotic disturbance, mood disturbance, and anxiety; I69.391 Dysphagia following cerebral infarction; Z20.822 Contact with and (suspected) exposure to COVID-19; Z88.0 Allergy status to penicillin; Z99.3 Dependence on wheelchair; Z96.653 Presence of artificial knee joint, bilateral; Z86.14 Personal history of Methicillin resistant Staphylococcus aureus infection; Z79.01 Long term (current) use of anticoagulants
CPT/HCPCS: 36600; 70450; 71045; 71046; 80048; 80053; 80202; 82805; 82962; 83036; 83605; 83735; 83880; 84100; 84484; 85025; 85027; 85610; 85730; 87040; 87077; 87147; 87205; 87449; 87502; 87641; 87811; 87899; 92526; 92610; 93005; 93306; 94640; 94660; 96361; 96374; 96375